=== PATIENT | male | born 1960 | race Caucasian/White ===

== ENCOUNTER → 2023-09-10 12:02 | Outpatient (REF) | payer MEDICARE, OTHER, SELFPAY ==
[2023-09-10 13:48] LABS: % Basophils 0.5 % (0-2); % Eosinophils 1.5 % (0-6); % Immature Granulocytes 0.2 % (0-0.5); % Lymphocytes 19.3 % (20.5-51.1); % Neutrophils 70.5 % (42.2-75.2); Absolute Basophils 0.1 10^3/uL (0-0.2); Absolute Eosinophils 0.1 10^3/uL (0-0.7); Absolute Lymphocytes 1.8 10^3/uL (1.2-3.4); Absolute Monocytes 0.7 10^3/uL (0.1-0.6); Absolute Neutrophils 6.4 10^3/uL (1.4-6.5); Hematocrit 42.2 % (39.0-52.0); Hemoglobin 14.4 g/dL (13.0-18.0); Mean Corp Hgb Conc. 34.1 g/dL (33.0-37.0); Mean Corpuscular Hgb 31.4 pg (27.0-31.0); Mean Corpuscular Volume 91.9 fL (80.0-94.0); Mean Platelet Volume 10.1 fL (7.4-10.4); Nucleated Red Blood Cells % 0 % (-); Platelet Count 270 10^3/uL (130-400); Red Blood Cell Count 4.59 10^6/uL (4.70-6.10); Red Cell Dist. Width 13.7 % (11.5-14.5); White Blood Cell Count 9.1 10^3/uL (4.8-10.8)
[2023-09-10 14:29] LABS: ALT (SGPT) 14 U/L (0-50); AST (SGOT) 21 U/L (17-59); Albumin 4.2 g/dl (3.5-5.0); Alkaline Phosphatase 57 U/L (38-126); Blood Urea Nitrogen 21 mg/dl (9-20); Calcium 9.7 mg/dl (8.4-10.2); Carbon Dioxide 28 mmol/L (22-30); Chloride 101 mmol/L (98-107); Glucose 121 mg/dl (70-99); HDL Cholesterol 37 mg/dl; LDL Cholesterol, Calculated 102 mg/dl; Sodium 136 mmol/L (135-145); Total Bilirubin 0.6 mg/dl (0.2-1.3); Total Cholesterol 160 mg/dl (50-199); Total Protein 6.8 g/dl (6.3-8.2); Triglyceride 108 mg/dl (10-149); Very Low Density Lipoprotein 21 mg/dl (0-30); eGFR > 60.00
[2023-09-10 16:13] LABS: PSA, Total - Screen 0.43 ng/ml (0.0-4.0)
== END ==
LOC: REG 12:02
PROVIDERS: ATTENDING PHYSICIAN Family Medicine
DX: E11.22 Type 2 diabetes mellitus with diabetic chronic kidney disease (principal); Z13.0 Encounter for screening for diseases of the blood and blood-forming organs and certain disorders involving the immune mechanism; E78.00 Pure hypercholesterolemia, unspecified; Z12.5 Encounter for screening for malignant neoplasm of prostate
CPT/HCPCS: 36415; 80053; 80061; 83036; 85025; G0103

== ENCOUNTER → 2024-08-29 10:41 | Outpatient (REF) | payer MEDICARE, OTHER, SELFPAY ==
[2024-08-29 12:02] LABS: Hematocrit 43.6 % (39.0-52.0); Hemoglobin 14.7 g/dL (13.0-18.0); Mean Corp Hgb Conc. 33.7 g/dL (33.0-37.0); Mean Corpuscular Volume 90.3 fL (80.0-94.0); Nucleated Red Blood Cells % 0 % (-); Platelet Count 288 10^3/uL (130-400); Red Cell Dist. Width 13.7 % (11.5-14.5)
[2024-08-29 12:42] LABS: ALT (SGPT) 15 U/L (0-50); AST (SGOT) 18 U/L (17-59); Albumin 4.6 g/dl (3.5-5.0); Alkaline Phosphatase 52 U/L (38-126); Blood Urea Nitrogen 15 mg/dl (9-20); Calcium 9.6 mg/dl (8.4-10.2); Carbon Dioxide 27 mmol/L (22-30); Chloride 102 mmol/L (98-107); Glucose 135 mg/dl (70-99); HDL Cholesterol 34 mg/dl; LDL Cholesterol, Calculated 113 mg/dl; Potassium 4.4 mmol/L (3.5-5.1); Sodium 137 mmol/L (135-145); Total Protein 7.3 g/dl (6.3-8.2); Very Low Density Lipoprotein 51 mg/dl (0-30); eGFR > 60.00
[2024-08-29 12:58] LABS: PSA, Total - Screen 0.50 ng/ml (0.0-4.0)
[2024-08-29 13:20] LABS: Glycohemoglobin (HgbA1c) 6.1 % (4.0-5.6)
== END ==
LOC: REG 10:41
PROVIDERS: ATTENDING PHYSICIAN Family Medicine
DX: E78.00 Pure hypercholesterolemia, unspecified (principal); I10 Essential (primary) hypertension; R73.01 Impaired fasting glucose; Z12.5 Encounter for screening for malignant neoplasm of prostate
CPT/HCPCS: 36415; 80053; 80061; 83036; 85025; G0103

== ENCOUNTER 2024-11-16 20:02 | Inpatient (IN) | payer MEDICARE, OTHER, SELFPAY ==
[2024-11-16] VITALS (9 sets, daily range): BP systolic 40–189; BP diastolic 74–103
[2024-11-16 15:50] LABS: Hematocrit 42.9 % (39.0-52.0); Hemoglobin 14.9 g/dL (13.0-18.0); Mean Corp Hgb Conc. 34.7 g/dL (33.0-37.0); Mean Corpuscular Volume 88.1 fL (80.0-94.0); Nucleated Red Blood Cells % 0 % (-); Platelet Count 286 10^3/uL (130-400); Red Cell Dist. Width 13.8 % (11.5-14.5)
[2024-11-16 16:18] LABS: ALT (SGPT) 18 U/L (0-50); AST (SGOT) 19 U/L (17-59); Albumin 4.1 g/dl (3.5-5.0); Alkaline Phosphatase 45 U/L (38-126); Blood Urea Nitrogen 15 mg/dl (9-20); Calcium 8.7 mg/dl (8.4-10.2); Carbon Dioxide 24 mmol/L (22-30); Chloride 106 mmol/L (98-107); Glucose 155 mg/dl (70-99); Potassium 3.4 mmol/L (3.5-5.1); Sodium 137 mmol/L (135-145); Total Protein 6.6 g/dl (6.3-8.2); eGFR > 60.00
[2024-11-16 16:28] LABS: Lipase 75 U/L (23-300)
[2024-11-16] MEDS: DILAUDID 0.5 MG IV (16:43)
[2024-11-16] MEDS: NSS 1000 IV (16:43)
[2024-11-16 17:19] LABS: Urine Character Clear (Clear)
[2024-11-16 17:31] LABS: Urine Squamous Cell 0-2 /LPF (Few)
--- NOTE | 2024-11-16 18:07 | ED.GENMED ---
History of Present Illness
<Melissa Aaron PA-C - Last Filed: 11/16/24 20:48>
General
Chief Complaint: Abdominal Pain
Source: patient and spouse
Exam Limitations: none
Time Seen by Provider: 11/16/24 16:00
Nursing documentation reviewed up to this point in time: agreed with
History of Present Illness
History of Present Illness:
Patient is a 64-year-old male with history of hypertension, hyperlipidemia who presents to the emergency department with severe abdominal pain. Patient states symptoms started this morning around 9:30 AM while he was sitting on the couch drinking
coffee. He had not had anything to eat yet this morning. He describes pain as 'feeling like his intestines are twisting'. He also says that he feels a lot of pressure. It has been a constant pain across his entire lower abdomen. No radiation of
pain into his back. He has not had any episodes of nausea or vomiting. He has had no known fever. He denies any dysuria or hematuria. He had a normal bowel movement this morning prior to onset of symptoms.
Patient denies any associated chest pain or shortness of breath.
No known sick contacts.
Review of Systems
<Melissa Aaron PA-C - Last Filed: 11/16/24 20:48>
Review of Systems
Allergies reviewed?: Yes
All Other Systems: ROS reviewed and negative except as documented in HPI and ROS
Phy Exam
<Melissa Aaron PA-C - Last Filed: 11/16/24 20:48>
Physical Exam
Physical Exam:
Vitals: Hypertensive, otherwise vital signs stable. Afebrile
General: Patient is in moderate distress secondary to pain.
Skin: Warm and dry, no rashes or lesions
Head: Normocephalic, atraumatic
Eyes: Sclera nonicteric. EOMs intact. No nystagmus.
Throat: Protecting airway
Neck: Normal ROM, no cervical spine tenderness, no meningismus
Cardiac: Regular rate and rhythm, no murmurs.
Pulm: Normal respiratory effort, no wheezes, rales, rhonchi heard on exam
Abdomen: Abdomen soft. Moderate tenderness across lower abdomen guarding. No rebound tenderness.
Extremities: No evidence of cyanosis or edema. 2+ palpable DP pulses bilaterally
Neuro: AAOx3. Grossly intact.
Psychiatric: Normal affect.
Course
<Melissa Aaron PA-C - Last Filed: 11/16/24 20:48>
Orders/Labs/Results
Orders:
Orders
11/16/24 15:42
EKG [Electrocardiogram (*1)] Urgent
Reason for Study: Abdominal Pain
11/16/24 15:43
EKG- Treatment ONCE
11/16/24 15:44
Complete Blood Count/With Diff Urgent
Comprehensive Metabolic Panel Urgent
Lipase Urgent
Comment: LIPASE ADDED ON BY FLOOR 4:15PM 11-16-24
11/16/24 16:14
Add On- LAB Urgent
Tests Added?: lipase
CT Abd/pelvis W Iv Cont Urgent
Comment:
Reason For Exam: lower abdominal pain
0.9% Sodium Chloride 1000 ml [Nss] 1,000 ml IV BOLUS
HYDROmorphone [Dilaudid] 0.5 mg IV NOW STA
11/16/24 17:02
Lactic Acid Q4H
Comment: CANCEL 2nd LACTIC ACID IF 1st LACTIC ACID IS LESS THAN 2
Urinalysis Reflex To Culture Urgent
Date Specimen was Collected: 11/16/24
Time Specimen was Collected: 17:00
Urine Microscopic Reflex Cult Urgent
Urine Culture Urgent
RAS Source: U
Specimen Description:
Date Specimen was Collected: 11/16/24
Time Specimen was Collected: 17:00
11/16/24 18:06
HYDROmorphone [Dilaudid] 1 mg IV NOW STA
11/16/24 18:07
Ondansetron Injectable [Zofran] 4 mg IV NOW STA
11/16/24 18:51
Ampicillin/Sulbactam 3 G [Unasyn] 3 gm 0.9% Sodium Chloride 100 ml [Nss] 100 ml IV NOW
11/16/24 19:01
0.9% Sodium Chloride 1000 ml [Nss] 1,000 ml IV BOLUS
Acetaminophen 1000MG/100Ml [Ofirmev] 1,000 mg in 100 ml IV ONCE
Acetaminophen IV Indication:: ED Narcotic History-ONCE
11/16/24 19:13
Lactated Ringers [Lr] 1,000 ml IV BOLUS
11/16/24 19:24
HYDROmorphone [Dilaudid] 1 mg IV NOW STA
11/16/24 19:34
Blood Culture Q30M
RAS Source: Blood/Venous
Specimen Description:
Blood Culture Q30M
RAS Source: Blood/Venous
Specimen Description:
11/16/24 19:37
Admit/Transfer Patient As Directed
Co-Sign Provider:
Level of Care: Inpatient admission
Assign to:: IMU- Intermediate Care
Physician / Group: mayra sullivan
Diagnosis: sepsis 2/2 to diverticulitis with sigmoid perforation
Reason for Hospitalization: sepsis 2/2 to diverticulitis with sigmoid perforation
Expected length of stay greater than two midnights?: Yes
ELOS- Estimated Length of Stay in days: 4
I certify the patient meets the requirements for IP care: Yes
11/16/24 19:39
Ampicillin/Sulbactam 3 G [Unasyn] 3 gm 0.9% Sodium Chloride 100 ml [Nss] 100 ml IV NOW
11/16/24 19:42
Code Status As Directed
Resuscitation Status: Full Code
11/16/24 19:46
PRN Pain Medication Management As Directed
May give lesser potent ordered pain med per pt: Yes
preference::
Protocol:: Medication orders for pain may be administered in a
manner that supports deferring to patient preference
when the pt is:
- Requesting an ordered lesser potent pain medication.
Least to most potent pain medications are defined
as: acetaminophen < NSAID < tramadol < opioids
(morphine, oxycodone, hydromorphone).
- Requesting a lesser dose of the same medication IF
ORDERED.
- Requesting a less intrusive route of administration
if both routes are prescribed by the provider (PO <
IV).
11/16/24 20:14
Lactic Acid Q4H
Comment: CANCEL 2nd LACTIC ACID IF 1st LACTIC ACID IS LESS THAN 2
Abnormal Lab Results
11/16/24 11/16/24
15:44 17:02
WBC 21.1 H 10^3/uL
(4.8-10.8)
Abs Immat Gran (auto) 0.1 H 10^3/uL
(0-0.05)
Absolute Neuts (auto) 19.3 H 10^3/uL
(1.4-6.5)
Absolute Lymphs (auto) 0.9 L 10^3/uL
(1.2-3.4)
Neutrophils % 91.7 H %
(42.2-75.2)
Lymphocytes % 4.5 L %
(20.5-51.1)
Potassium 3.4 L mmol/L
(3.5-5.1)
Glucose 155 H mg/dl
(70-99)
Lactic Acid 2.5 H mmol/L
(0.7-2.0)
Urine Ketones 1+ A
(Negative)
Ur Occult Blood Reflex 4+ A
(Negative)
Leukocyte Esterase Rfl 1+ A
(Negative)
Urine RBC 11-15 A /HPF
(0-2)
Urine Bacteria (Reflex) Moderate A
(Negative)
Urine Albumin (Reflex) 3+ A
(Neg - Trace)
11/16/24 15:44
11/16/24 15:44
Vital Signs
Initial and Last Documented VS:
Initial Vital Signs
Temp Pulse Resp BP Pulse Ox
99.1 F 65 20 185/93 100
11/16/24 15:31 11/16/24 15:31 11/16/24 15:31 11/16/24 15:31 11/16/24 15:31
Last Documented Vital Signs
Temp Pulse Resp BP Pulse Ox
101 F H 97 26 183/103 97
11/16/24 18:30 11/16/24 18:45 11/16/24 18:45 11/16/24 18:00 11/16/24 18:30
<Chase Troncoso MD - Last Filed: 11/16/24 18:58>
Orders/Labs/Results
Orders:
Orders
11/16/24 15:42
EKG [Electrocardiogram (*1)] Urgent
Reason for Study: Abdominal Pain
11/16/24 15:43
EKG- Treatment ONCE
11/16/24 15:44
Complete Blood Count/With Diff Urgent
Comprehensive Metabolic Panel Urgent
Lipase Urgent
Comment: LIPASE ADDED ON BY FLOOR 4:15PM 11-16-24
11/16/24 16:14
Add On- LAB Urgent
Tests Added?: lipase
CT Abd/pelvis W Iv Cont Urgent
Comment:
Reason For Exam: lower abdominal pain
0.9% Sodium Chloride 1000 ml [Nss] 1,000 ml IV BOLUS
HYDROmorphone [Dilaudid] 0.5 mg IV NOW STA
11/16/24 17:02
Lactic Acid Q4H
Comment: CANCEL 2nd LACTIC ACID IF 1st LACTIC ACID IS LESS THAN 2
Urinalysis Reflex To Culture Urgent
Date Specimen was Collected: 11/16/24
Time Specimen was Collected: 17:00
Urine Microscopic Reflex Cult Urgent
Urine Culture Urgent
RAS Source: U
Specimen Description:
Date Specimen was Collected: 11/16/24
Time Specimen was Collected: 17:00
11/16/24 18:06
HYDROmorphone [Dilaudid] 1 mg IV NOW STA
11/16/24 18:07
Ondansetron Injectable [Zofran] 4 mg IV NOW STA
11/16/24 18:51
Ampicillin/Sulbactam 3 G [Unasyn] 3 gm 0.9% Sodium Chloride 100 ml [Nss] 100 ml IV NOW
11/16/24 19:01
0.9% Sodium Chloride 1000 ml [Nss] 1,000 ml IV BOLUS
Acetaminophen 1000MG/100Ml [Ofirmev] 1,000 mg in 100 ml IV ONCE
Acetaminophen IV Indication:: ED Narcotic History-ONCE
11/16/24 19:13
Lactated Ringers [Lr] 1,000 ml IV BOLUS
11/16/24 19:24
HYDROmorphone [Dilaudid] 1 mg IV NOW STA
11/16/24 19:34
Blood Culture Q30M
RAS Source: Blood/Venous
Specimen Description:
Blood Culture Q30M
RAS Source: Blood/Venous
Specimen Description:
11/16/24 19:37
Admit/Transfer Patient As Directed
Co-Sign Provider:
Level of Care: Inpatient admission
Assign to:: IMU- Intermediate Care
Physician / Group: mayra sullivan
Diagnosis: sepsis 2/2 to diverticulitis with sigmoid perforation
Reason for Hospitalization: sepsis 2/2 to diverticulitis with sigmoid perforation
Expected length of stay greater than two midnights?: Yes
ELOS- Estimated Length of Stay in days: 4
I certify the patient meets the requirements for IP care: Yes
11/16/24 19:39
Ampicillin/Sulbactam 3 G [Unasyn] 3 gm 0.9% Sodium Chloride 100 ml [Nss] 100 ml IV NOW
11/16/24 19:42
Code Status As Directed
Resuscitation Status: Full Code
11/16/24 19:46
PRN Pain Medication Management As Directed
May give lesser potent ordered pain med per pt: Yes
preference::
Protocol:: Medication orders for pain may be administered in a
manner that supports deferring to patient preference
when the pt is:
- Requesting an ordered lesser potent pain medication.
Least to most potent pain medications are defined
as: acetaminophen < NSAID < tramadol < opioids
(morphine, oxycodone, hydromorphone).
- Requesting a lesser dose of the same medication IF
ORDERED.
- Requesting a less intrusive route of administration
if both routes are prescribed by the provider (PO <
IV).
11/16/24 20:14
Lactic Acid Q4H
Comment: CANCEL 2nd LACTIC ACID IF 1st LACTIC ACID IS LESS THAN 2
Abnormal Lab Results
11/16/24 11/16/24
15:44 17:02
WBC 21.1 H 10^3/uL
(4.8-10.8)
Abs Immat Gran (auto) 0.1 H 10^3/uL
(0-0.05)
Absolute Neuts (auto) 19.3 H 10^3/uL
(1.4-6.5)
Absolute Lymphs (auto) 0.9 L 10^3/uL
(1.2-3.4)
Neutrophils % 91.7 H %
(42.2-75.2)
Lymphocytes % 4.5 L %
(20.5-51.1)
Potassium 3.4 L mmol/L
(3.5-5.1)
Glucose 155 H mg/dl
(70-99)
Lactic Acid 2.5 H mmol/L
(0.7-2.0)
Urine Ketones 1+ A
(Negative)
Ur Occult Blood Reflex 4+ A
(Negative)
Leukocyte Esterase Rfl 1+ A
(Negative)
Urine RBC 11-15 A /HPF
(0-2)
Urine Bacteria (Reflex) Moderate A
(Negative)
Urine Albumin (Reflex) 3+ A
(Neg - Trace)
11/16/24 15:44
11/16/24 15:44
Vital Signs
Initial and Last Documented VS:
Initial Vital Signs
Temp Pulse Resp BP Pulse Ox
99.1 F 65 20 185/93 100
11/16/24 15:31 11/16/24 15:31 11/16/24 15:31 11/16/24 15:31 11/16/24 15:31
Last Documented Vital Signs
Temp Pulse Resp BP Pulse Ox
101 F H 97 26 183/103 97
11/16/24 18:30 11/16/24 18:45 11/16/24 18:45 11/16/24 18:00 11/16/24 18:30
<Melissa Aaron PA-C - Last Filed: 11/16/24 20:48>
MDM/Problems Addressed
Differential Diagnosis Includes:
Not limited to: Diverticulitis, diverticular abscess, bowel perforation, renal colic, appendicitis, bowel obstruction, mesenteric ischemia, strangulated hernia, etc.
MDM/Problems Addressed:
64-year-old male presenting with acute onset lower abdominal pain at 930 this morning. No associated fever, vomiting, dysuria. He was in his normal state of health yesterday. On arrival, patient is afebrile. He appears uncomfortable. His
abdomen is soft with somewhat diffuse tenderness across lower abdomen, difficult to localize with guarding. Cardio/pulmonary assessment unremarkable.
Labs sent prior to my evaluation reveal significant leukocytosis of 21.1 with left shift. Chemistry with very mild hypokalemia and hyperglycemia.
Differential as above. Patient is afebrile on arrival. Considered intra-abdominal infectious process versus reactive leukocytosis. Given significant degree of pain�will check lactic acid. Will check lipase and UA. Will obtain CT scan with IV
contrast to further evaluation. Will give IV fluids and pain medication.
Update: Lactic acid mildly elevated 2.5. Patient is receiving IV fluids. CT pending.
Update 6:02 PM: I was contacted by RN saying the patient was in a significant amount of pain. I did reassess patient at bedside who appears very uncomfortable, moaning. He appears to be in more pain than he initially was upon arrival. He states
initial dose of Dilaudid did help temporarily however now it has increased again. Will get patient to CT scan as soon as possible and give additional dose of pain medication.
Update: CT scan reveals acute diverticulitis with moderate focal perforation of proximal sigmoid colon. Developing abscess unable to be excluded. Attending physician discussed with colorectal surgeon, Dr. Field immediately. Additional liter of IV
fluids and IV Unasyn ordered. Plan will be to take patient to the OR [facility].
Patient was found to have a rectal temperature of 101 on reassessment by RN. He meets sepsis criteria likely secondary to diverticulitis complicated by perforation. He has remained normotensive. He is receiving second bolus of IV fluids. He was
accepted to hospitalist service for admission with plan for transportation to the OR [facility] with colorectal surgery.
Chronic conditions affecting care:
Hypertension
Acute Exacerbation and/or Progression of Chronic Illness:
Acutely hypertensive
<Melissa Aaron PA-C - Last Filed: 11/16/24 20:48>
*Radiology
Radiology exam reviewed: radiology read reviewed
*Pulse Oximetry
SaO2: 100
Oxygen Mode of Delivery: Room air
Patient hypoxic: no
*EKG
Interpreted by ED Provider?: NA
*Senior [employer] Design Engineer Interpretation
Rate: normal
Interpretation: normal
Heart Rate: 64
Rhythm: sinus
*Critical Care Note
Total Time (30-74mins, 75-104mins- exclusive of procedures): Not Applicable
<Melissa Aaron PA-C - Last Filed: 11/16/24 20:48>
Patient Management
Discussion with other providers: Hospitalist and Advanced Manufacturing Technician (Case discussed with colorectal surgery)
ED Attending Note
<Melissa Aaron PA-C - Last Filed: 11/16/24 20:48>
-
Portions of this chart may have been created with voice recognition software.� Occasional wrong word or��sound alike� substitutions may have occurred due to the inherent limitations of voice recognition software.
<Chase Troncoso MD - Last Filed: 11/16/24 18:58>
ED Attending Note
Patient seen and examined by attending physician: Yes
I performed the substantive portion of visit, reviewed & personally made and approve the management plan that is documented in note by myself or MARGIE.: Yes
ED Attending Note:
64-year-old male sudden onset of abdominal pain this morning. I heard him going over to see CAT scan and appeared very uncomfortable. Patient moaning in pain. Quite uncomfortable. No respiratory distress. Warm and dry. Perfusing well. Abdomen
is distended although he had does have a bulbous abdomen. Diffuse tenderness difficult to localize.
Labs show significant leukocytosis. Awaiting CT report I did call over to CAT scan/radiology to try to have them expedite reading
1750... CT scan shows diverticulitis with moderate perforation. Colorectal surgery contacted immediately. Patient and updated. Antibiotics ordered. Blood cultures ordered.
Discharge Plan
Departure
Patient Disposition: Admit
Date of Disposition: 11/16/24
Time of Disposition: 18:57
Presentation/result/management discussed w/ accepting MD/DO: Hospitalist
Discharge Problem:
Diverticulitis of colon with perforation
Interventions
Interventions:
*Risk Screen - Suicide Last Done: 11/16/24 15:37
*General Assessment Last Done: 11/16/24 15:37
*Neglect/Abuse Screening Last Done: 11/16/24 15:37
*ED- Fall Risk Assessment Last Done: 11/16/24 15:40
*ED COVID-19 Vaccine History Last Done: 11/16/24 15:40
*ED Influenza Vaccine History Last Done: 11/16/24 15:40
VK-Rquiob-Gazgemex[facility] Assessment Last Done: 11/16/24 15:40
[2024-11-16] MEDS: ZOFRAN 4 MG IV (19:00)
[2024-11-16] MEDS: DILAUDID 1 MG IV ×2 (19:00→19:43)
--- NOTE | 2024-11-16 19:18 | W.PN.UPDATE ---
Update Note
Progress Note Update
This note serves as an addendum to the H&P by cafeteria clerk Vanda Gay
HPI�
64M current smoker, HX diverticulitis, DLP, chronic narcotic decedent LBP seen at ER:
- acute severe abdominal pain started this morning around 9:30 AM while he was sitting on the couch drinking coffee.
- did not eat anything since this morning.
- describes pain as 'feeling like his intestines are twisting'.
- No radiation of pain into his back. He has not had any episodes of nausea or vomiting.
ROS:
- denies any dysuria or hematuria.
-normal bowel movement this morning prior to onset of symptoms.
- denied chest pain or shortness of breath.
Relevant VS
11/16/24
18:30 11/16/24
18:30 11/16/24
18:45
Temp 101 F H
Temp route: Rectal
Pulse 98 97
Resp Rate 21 26
11/16/24
18:00 11/16/24
18:00 11/16/24
18:00
Blood pressure 183/103 183/103 183/103
PE
Gen: in distress due to abdominal pain but not toxic
HEENT: anicteric
Neck: supple
Lungs: CTA
Cor: RRR S1 S2
Abdomen:� diffusely tender abdomen and guarding
CREDIT REVIEW OFFICER: AAO3
MS: no edema
Psych: appropriate
Relevant Data�
10/18/09 11/16/24 11/16/24
10:07 15:44 17:02
WBC 21.1 H
Hgb 14.9
Plt Count 286
INR 0.88
Potassium 3.4 L
Carbon Dioxide 24
eGFR > 60.00
Glucose 155 H
Lactic Acid 2.[address] AP W Iv Cont
- moderate acute diverticulitis with a moderate focal perforation in the proximal sigmoid colon.
Additional free air as described above. Developing abscess cannot be excluded.
Associated mild free fluid.
- Too small to catheterize hypodense left renal lesion likely benign cysts.
- Mild hepatomegaly.
- Hepatic fatty infiltration
NO PRIOR hospitalist admission:
ASSESSMENT & PLAN
Severe sepsis ( T> 100.9, HR > 90, RR 20 , WCC 21, LA > 2) due to complicated diverticulitis
Complicated acute proximad diverticulitis with moderate focal perforation and peritonism
HX Diverticulitis
- Urgent CRS consult and will proceed to OR
- LR IVF septic fluid - 1 L WO at ER, s/p 1 L NS
- Empiric IV Unasyn 3gm q6h
- PRN IV Dilaudid per severity
- IV PPI daily
- NPO
Hypertensive due to acute pain and distress
Essential HTN
- Nl Cr and eGFR
- adequate preop and post op pain control
- Hold Valsartan + HCTZ
Chr LBP on chr narcotics
DVT Px: SCD
Full code
IMU
--- NOTE | 2024-11-16 19:24 | HPS.HSE ---
Family Physician
-
Family Physician: Rosibel Romero MD
Chief Complaint
-
Abdominal pain, fever
History of Present Illness
64-year-old male complaining of generalized abdominal pain that started this a.m. 930 while sitting on the sofa drinking coffee. He reports constant pain in his lower abdomen while going to CAT scan in the ER he developed worsening pain along with
fever of 101F. He is noted to have WBC count of 21.[address] abdomen pelvis showing moderate acute diverticulitis with moderate focal perforation in the proximal sigmoid colon with additional multiple small pockets of extraluminal air. Patient
denies headache, chest pain, palpitations, cough, shortness of breath, diarrhea, urinary symptoms. He has past medical history of COPD, hypertension, hyperlipidemia, GERD, diverticulitis, hemorrhoids, chronic back pain on chronic oral opiates,
C6-C7 fusion
Medical History
Past Medical History
Past Medical History: Reports Other
Additional Past Medical History:
COPD
Active smoker 1 pack a day 50 years
hypertension
hyperlipidemia
chronic back pain on chronic oral opiates,
GERD
diverticulitis
hemorrhoids
Past Surgical History: Reports Other
Additional Past Surgical History:
C6-C7 fusion
Social History
Tobacco: Smoker (1 pack a day 50 years)
Alcohol: None
Drug: None
Personal:
Living: With Family ()
Employment: Retired
Family History
Family History: Not pertinent
Allergies / Home Medications
Allergies reflects when Allergies were last updated in [employer].
Home Medications with original date entered in [employer]
Allergy/Medication List:
Allergies
Allergy/AdvReac Type Severity Reaction Status Date / Time
No Known Allergies Allergy Verified 11/16/24 15:30
Home Medications
pantoprazole 40 mg tablet,delayed release 40 mg PO DAILY 04/05/10
fexofenadine 180 mg tablet 180 mg PO DAILY 11/16/24
oxycodone 15 mg tablet 15 mg PO Q6HPRN PRN severe pains 11/16/24
valsartan 160 mg-hydrochlorothiazide 12.5 mg tablet 1 tab PO DAILY 11/16/24
Review of Systems
-
History Source: Patient and Family ( at bedside)
Constitutional: Reports Fever and Chills
EENT: Denies Sore Throat or Runny Nose
Respiratory: Denies Cough or Trouble Breathing
Cardiac: Denies Chest Pain, Diaphoresis, Palpitations or Syncope
Abdomen/GI: Reports Abdominal Pain and Nausea; Denies Vomiting, Diarrhea, Constipated or Bloody Stools
: Denies Dysuria, Frequency, Flank Pain, Incontinence or Difficulty Voiding
Musculoskeletal: Denies Joint Pain or Edema
Skin: Denies Itching or Rash
Neurological: Denies Dizzy, Headache or Weakness
Endocrine: Reports No Symptoms
Hematologic/Lymphatic: Reports No Symptoms
Psych: Reports Calm
Physical Exam
Vital Signs
Vital Signs
Temp Pulse Resp BP Pulse Ox
101 F H 97 26 183/103 97
11/16/24 18:30 11/16/24 18:45 11/16/24 18:45 11/16/24 18:00 11/16/24 18:30
Physical Exam
General: Conversant, Pain, Fever and Chills
HEENT: NormoCephalic, Anicteric, Moist mucous membranes, PERRLA, [place] Conjunctivae and No Ptosis
Respiratory: Clear; No Wheezes, Rales or Rhonchi
Cardiac: S1/S2 and Regular Rhythm; No Murmur, Rub, Gallop or Peripheral Edema
GI: Soft, Normal Bowel Sounds and Tender (llq abd pain)
Genito-urinary: Deferred by me
Musculoskeletal: No Clubbing, No Cyanosis and No Edema
Skin: Warm and Dry; No Rash
Neuro: AO x 3, No Motor Deficits, Nonfocal/grossly intact, Cranial Nerves Intact and No Sensory Deficits; No Slurred Speech, Facial Droop or Tremors
Psych: Anxious
Laboratory Results
-
11/16/24 15:44
11/16/24 15:44
Laboratory Results
Lactic Acid 2.5 mmol/L (0.7-2.0) H 11/16/24 17:02
Total Bilirubin 0.6 mg/dl (0.2-1.3) 11/16/24 15:44
AST 19 U/L (17-59) 11/16/24 15:44
ALT 18 U/L (0-50) 11/16/24 15:44
Alkaline Phosphatase 45 U/L (38-126) 11/16/24 15:44
Lipase 75 U/L (23-300) 11/16/24 15:44
Data Reviewed
-
CT Scan: Report Reviewed by me
Lab Data: Labs Reviewed by me
Impression/Plan
-
Impression/plan:
Admit to IMU
#Sepsis secondary to acute diverticulitis with perforation proximal sigmoid colon
WBC 21.1 with left shift, HR 97, temp 101F, 183/103
-IV LR
- Consult general surgery Dr. Field aware
- Patient for OR tonight
- IV Dilaudid for pain mild moderate-severe as patient is on chronic oxycodone 15 mg every 4 to 6 as needed
-Patient received 1 L IV NSS 1 L IV LR continue IV LR 100 cc an hour
- IV Zofran, IV Phenergan
- IV Protonix
- IV Unasyn 3 g
- follow cbc cmp
CT chest abdomen
1. Findings suggesting moderate acute diverticulitis with a moderate focal perforation in the proximal sigmoid colon. Additional free air as described above. Developing abscess cannot be excluded.
Associated mild free fluid.
2. Too small to catheterize hypodense left renal lesion likely benign cysts.
3. Mild hepatomegaly.
4. Hepatic fatty infiltration
#COPD�no acute exacerbation
Active smoker 1 pack a day 50 years
-Monitor pulse oximetry albuterol as needed
- Nicotine patch 21 mg
#Hypertension
183/103 secondary to current pain
Monitor blood pressure
-Hold valsartan/HCTZ
-IV labetalol 5 mg every 6 hours as needed SBP>160
#Hyperlipidemia
Patient reports used to be on statins repeat cholesterol was negative so he stopped
#Chronic back pain on chronic oral opiates
- Patient on chronic oxycodone 15 mg IR every 4 to 6 hours as needed
-Will hold until patient able to resume oral intake per surgery
# GERD
-Will convert p.o. Protonix to IV
Other PMH:
diverticulitis
hemorrhoids
DVT prophylaxis
Subcu heparin
Full code
[2024-11-16] MEDS: OFIRMEV 100 IV (19:28)
[2024-11-16] MEDS: LR 1000 IV (19:30)
--- NOTE | 2024-11-16 20:16 | EDRN ---
IV antibiotics not given, called down to pharmacy but did not receive in time to send pt to OR
--- NOTE | 2024-11-16 20:19 | CON.CRS ---
Consultation
-
Date/Time Consultation Requested: 11/16/24 @18:53
Date/Time Consultation Performed: 11/16/24 @20:00
Requesting Provider: Chase Troncoso MD
Performing Provider: Aram Field MD
Reason for Consultation: Perforated sigmoid diverticultis
Medical History
-
Chief Complaint: Abdominal pain
History of Present Illness:
64-year-old male with hypertension COPD, hyperlipidemia, and chronic narcotic use who presents to the emergency room with severe abdominal pain.� The pain began acutely this morning and progressed throughout the day.� The pain was localized
initially to left lower quadrant and now it is more diffuse.� He feels like his intestines are �twisting�.� He moved his bowels this morning and it was normal.� He has no prior history of diverticulitis and he has not undergone any previous
abdominal surgery..� He had a colonoscopy about 5 years ago that he reports was normal.
While in the emergency room his temperature was 101. He is not tachycardic his blood pressure is elevated. He appears quite uncomfortable lying on his left side with his legs drawn up. He is moaning and his abdomen is diffusely tender with
guarding and rebound left greater than right.
His white count is 21.1. A CT scan of the abdomen and pelvis with intravenous contrast reveals pericolonic stranding around the sigmoid colon with multiple small pockets of extraluminal air anterior to the rectum and some scattered pockets of
extraluminal air in the upper abdomen. There is some mild free fluid mostly on the right.
Past Medical History
Past Medical History: COPD, GERD, HTN, Hypercholesterolemia and Other (Chronic back pain)
Past Surgical History: Orthopedic (C6-7 fusion)
Social History
Tobacco: Smoker (1 pack/day for 50 years)
Alcohol: None
Drug: None
Personal:
Living: With Family
Employment: Retired
Family History
Family History: Reviewed & Not Pertinent
Allergies / Home Medications
Allergy/AdvReac Type Severity Reaction Status Date / Time
No Known Allergies Allergy Verified 11/16/24 15:30
�Medication �Instructions �Recorded �Confirmed �Type
pantoprazole 40 mg tablet,delayed 40 mg PO DAILY 04/05/10 11/16/24 History
release
fexofenadine 180 mg tablet 180 mg PO DAILY 11/16/24 11/16/24 History
oxycodone 15 mg tablet 15 mg PO Q6HPRN PRN severe pains 11/16/24 11/16/24 History
valsartan 160 1 tab PO DAILY 11/16/24 11/16/24 History
mg-hydrochlorothiazide 12.5 mg
tablet
Review of Systems
-
History Source: Patient
All other systems: Negative unless noted
A 10 point review of systems was completed, and was negative except as per HPI.
Physical Exam
Vital Signs
Temp 101 F H 11/16/24 18:30
Pulse 97 11/16/24 18:45
Resp Rate 26 11/16/24 18:45
Blood pressure 183/103 11/16/24 18:00
SaO2 97 11/16/24 18:30
Lab Results / Allergies
11/16/24 15:44
11/16/24 15:44
WBC 21.1 10^3/uL (4.8-10.8) H 11/16/24 15:44
Hgb 14.9 g/dL (13.0-18.0) 11/16/24 15:44
Hct 42.9 % (39.0-52.0) 11/16/24 15:44
Plt Count 286 10^3/uL (130-400) 11/16/24 15:44
Abs Immat Gran (auto) 0.1 10^3/uL (0-0.05) H 11/16/24 15:44
Neutrophils % 91.7 % (42.2-75.2) H 11/16/24 15:44
Allergy/AdvReac Type Severity Reaction Status Date / Time
No Known Allergies Allergy Verified 11/16/24 15:30
Physical Exam
General: Well Developed, Well Nourished, Pain and Sweats
HEENT: Anicteric
Respiratory: Clear
Cardiac: Regular Rhythm
GI: Tender (With peritoneal signs (guarding and rebound) left greater than right) and Distended
Musculoskeletal: No Edema
Skin: Warm
Neuro: Awake and Alert
Data Reviewed
-
CT Scan: Image Personally Visualized and interpreted, Report Reviewed by me, Discussed with Patient and Discussed with Family
Labs: Labs Reviewed by me, Discussed with Patient and Discussed with Family
Assessment / Plan
-
Perforated sigmoid diverticulitis.
I reviewed the current findings with the patient and his and discussed the treatment options. We discussed nonoperative management with antibiotics and bowel rest versus surgery. Without surgery there is a risk of worsening sepsis, abscess
formation, and . Surgery will involve an exploratory laparotomy, sigmoid resection and probable end colostomy. There is a small chance an anastomosis can be performed with or without proximal diversion. Risks of surgery include, but are not
limited to, bleeding, infection, adhesions, hernias, injury to other structures, stoma complications, anastomotic leak if one is performed, DVT, cardiopulmonary complications (especially in light of his smoking history), and the risks of anesthesia.
If a colostomy is made, it is temporary and the timing of closure is dictated by his postoperative course and intra-abdominal findings. I also reviewed the typical recovery both in and out of the hospital. All questions answered and since he is
in excruciating pain, he wishes to proceed with surgery as soon as possible. Antibiotics have been ordered and arrangements are in progress for the operating room.
--- NOTE | 2024-11-16 23:23 | W.IMMPOSTOP ---
Surgical Immed Post Op Note
-
Primary Surgeon: Aram iFeld MD
Pre-op Diagnosis: Perforated sigmoid diverticulitis
Post-op Diagnosis: Same
Procedure Performed: Exploratory laparotomy, sigmoid resection and end colostomy (Tasha procedure)
Anesthesia Type: GET, [place]
Specimen / Cultures: Peritoneal cultures
Sigmoid colon (suture is distal)
Estimated Blood Loss: 25cc
Complications: None
Operative Findings: Large amount of solid stool in the pelvis from perforated diverticulitis
Feculent fluid in the upper quadrants
NGT in the fundus of the stomach
#19 Sahil drain in the pelvis
Patient's updated via telephone.
[2024-11-17] VITALS (31 sets, daily range): BP systolic 15–168; BP diastolic 76–118; PULSE 94–112; O2SAT 92; BMI 28.2; BMI 28.0
[2024-11-17] MEDS: LR 1000 IV ×3 (00:40→18:42)
[2024-11-17] MEDS: TORADOL 15 MG IV ×5 (00:43→23:18)
[2024-11-17] MEDS: HEPARIN 5000 UNITS SC ×2 (00:46→09:18)
--- NOTE | 2024-11-17 03:00 | PTCARENOTE ---
Received pt from OR,pt drowsy but oriented tolerated transfer well.Pt VS stable,ABD assessment preformed Drsg dry intact ,colostomy stoma moist,intact with appliance present.PEG compressed minimal drainage.NGT intact to right nare.SR cardiac
monitor,VS stable.Pt comfortable denied need for pain med.IVF LR initiated at 100mls hour,close observation ongoing.
[2024-11-17] MEDS: DILAUDID 2 MG IV ×4 (04:20→18:42)
[2024-11-17 05:47] LABS: Hematocrit 41.3 % (39.0-52.0); Hemoglobin 14.2 g/dL (13.0-18.0); Mean Corp Hgb Conc. 34.4 g/dL (33.0-37.0); Mean Corpuscular Volume 88.1 fL (80.0-94.0); Platelet Count 250 10^3/uL (130-400); Red Cell Dist. Width 14.2 % (11.5-14.5)
[2024-11-17 06:04] LABS: ALT (SGPT) 18 U/L (0-50); AST (SGOT) 19 U/L (17-59); Albumin 3.4 g/dl (3.5-5.0); Alkaline Phosphatase 24 U/L (38-126); Blood Urea Nitrogen 22 mg/dl (9-20); Calcium 8.4 mg/dl (8.4-10.2); Carbon Dioxide 23 mmol/L (22-30); Chloride 105 mmol/L (98-107); Estimated Creatinine Clearance 77 ml/min; Glucose 163 mg/dl (70-99); Potassium 4.4 mmol/L (3.5-5.1); Sodium 135 mmol/L (135-145); Total Protein 5.7 g/dl (6.3-8.2); eGFR > 60.00
[2024-11-17 06:43] LABS: Nucleated Red Blood Cells % 0 % (-)
--- NOTE | 2024-11-17 07:58 | W.PN.HOSP.TC ---
Today's Communication/Plan
-
Stable for downgrade to Tele
cont empirix abx zosyn
Repeat Blood Cultures
Nicotine Supplementation
pain control
Assessment / Plan
Assessment / Plan
Physical Exam
General: no acute distress, appears relatively comfortable at this time, sitting up in bed
HEENT: NormoCephalic, Anicteric, Moist mucous membranes, NGT in place
Respiratory: Clear; No Wheezes, Rales or Rhonchi
Cardiac: S1/S2 and Regular Rhythm; No Murmur, Rub, Gallop or Peripheral Edema
GI: Soft, absent bowel sounds, dressings clean dry intact, colostomy present no stool noted
Genito-urinary: Pozo in place
Musculoskeletal: No Clubbing, No Cyanosis and No Edema
Skin: Warm and Dry; No Rash
Neuro: AO x 3 conversant coherent
Psych: Calm
64M Tobacco Diverticulitis Chronic back pain narcotics dependence HTN HLD GERD here for severe sepsis 2/2 diverticulitis perforation s/p Exploratory laparotomy, sigmoid resection and end colostomy (Tasha procedure),
#Severe sepsis diverticulitis perforation s/p Exploratory Lap, sigmoid resection, End Colostomy
IMU admit, hemodynamically stable post-op, wbc trending down, Downgraded to Tele 11/17/24
CRS eval appreciated cont strict NPO, maintain NGT
IVF support while NPO
cont empiric zosyn
Bacteremia E. coli follow sensitivities repeat Blood cultures
pain control
#HTN
holding home Valsartan HCTZ while strict NPO
Labetalol prn
#Chronic Back pain w/ chronic opiate use possible dependence
on prn Oxycodone home, holding d/t strict NPO
prn Dilaudid
#Tobacco use
smoking cessation counseled
Nicotine Supplementation
DVT ppx Lovenox
Full Code
Discussed with patient and patient's Ria
I spent a total of 50 minutes with the patient or on the floor. More than 50% of this time involved counseling and coordination of care.
Anticipated Discharge: > 48 hours
Subjective/Interval History
-
Date of Service: November 17, 2024
No acute distress, reports significant improvement in pain. No flatus. Reports nicotine craving.
Objective Data
-
Labs:
Laboratory Results
11/17/24
05:06
WBC 12.3 H
Hgb 14.2
Hct 41.3
Plt Count 250
Sodium 135
Potassium 4.4 D
Chloride 105
Carbon Dioxide 23
BUN 22 H
Creatinine 1.1
Glucose 163 H
Calcium 8.4
Total Bilirubin 1.2
AST 19
ALT 18
Alkaline Phosphatase 24 L
Vital Signs:
Vital Signs
Temp Pulse Resp BP Pulse Ox
98.9 F 82 19 131/77 92
11/17/24 07:26 11/17/24 07:45 11/17/24 07:45 11/17/24 07:30 11/17/24 07:45
I&O
11/16/24 11/17/24 11/18/24
06:59 06:59 06:59
Intake Total 1700 / 1700
Output Total 550 / 550 115 / 115
Balance 1150 / 1150 -115 / -115
[2024-11-17] MEDS: PROTONIX IV 40 MG IV (09:18)
[2024-11-17] MEDS: NICODERM TRANSDERMAL 21 MG TRANSDERM (09:36)
[2024-11-17] MEDS: ZOSYN 50 IV ×3 (09:36→22:42)
--- NOTE | 2024-11-17 11:32 | PTCARENOTE ---
Pt was rec'd in report from night RN, AOx3 pleasant, pain controlled at this time. Pt NPO with IVF infusing, Pozo catheter, NGT via right nare to suction. Midline abd wound assessed, LLQ colostomy with budded stoma, right abdominal PEG drain with
serosang output. Plan of care and orders reviewed, pt with call thomason in hand. Safe environment maintained.
--- NOTE | 2024-11-17 11:36 | CM ---
CM met with pt bedside
He resides with his spouse in a 2SH with 1 MAMIE
Full flight to 2nd floor where he typically sleeps/showers
Has a fill bathroom and bedroom on 1st floor if 1st floor set up is needed on dc
Pt is independent with all his care needs, no ADs
He enjoys outdoor activities and is very active baseline
Pt has Rx plan and denies financial insecurities
PCP- Rosibel Romero
rx- [facility] (limited weekends hours)
Pt is POD31 Hartmanns procedure with new ostomy
PT/OT with VN recs
Referral to [facility] via [facility] per pt request
Pt has his MIL's old three wheeled walker which is broken
He will likely need a WW issued on dc
WOC consulted for ostomy teaching
Discharge Disposition- home with [facility] (referral pending) and new ostomy, will likely need WW issued on dc
--- NOTE | 2024-11-17 11:37 | W.PN.CRS1 ---
Today's Communication / Plan
-
maintain ngt
lanza out tomorrow
lovenox
wound ostomy teaching
await bowel function
continue iv abx
Assessment/Plan
-
POD#1 Exploratory laparotomy, sigmoid resection and end colostomy (Tasha procedure)
Tmax 101.0 (prior to OR), now afebrile
Vitals otherwise normal
WBC 12.3 (21.1)
-NGT to remain in place until bowel function
-Wound RN for ostomy teaching
-OOB as tolerated. PT/OT consulted.
-Start lovenox for DVT prophylaxis. TEDS/SCDS in place.
-Maintain nasra drain until discharge
-Keep lanza until pod#2
-Pain control: tylenol/toradol standing, dilaudid PRN
-Maintain IV antibiotics
-OR pathology pending
-LR @100ml/hr while NPO
Subjective Data
Procedure
11/16/2024- Exploratory laparotomy, sigmoid resection and end colostomy (Tasha procedure)
Subjective Data
Date of Service: November 17, 2024
Patient states his pain has improved. Denies nausea or vomiting. He has no complaints and feels better since surgery.
Objective Data
-
Vital Signs
Temp Pulse Resp BP Pulse Ox
97.9 F 98 23 141/88 91
11/17/24 11:13 11/17/24 11:00 11/17/24 10:52 11/17/24 11:00 11/17/24 11:00
Intake & Output
11/16/24 11/17/24 11/18/24
06:59 06:59 06:59
Intake Total 1700 / 1700 50 / 50
Output Total 550 / 550 310 / 310
Balance 1150 / 1150 -260 / -260
Intake:
IV fluids (Total) 1700 / 1700 50 / 50
Lr 1,000 ml @ 100 mls/hr IV . 400 / 400
Q10H ALDAIR Rx#:[id number]
Normosol 1300 / 1300
zosyn 50 / 50
Amount instilled into GI Tube ( 0 / 0
Total)
[place] Sump 0 / 0
Output:
Drain Output (Total) 125 / 125 130 / 130
Right Lower Abdomen Sreekanth- 125 / 125 130 / 130
Mason
Gastrointestinal tube output ( 0 / 0 30 / 30
Total)
[place] Sump 0 / 0 30 / 30
Urine, Lanza 425 / 425 150 / 150
Lab Results
11/17/24 05:06
11/17/24 05:06
Physical Exam
-
General: No Acute Distress and AOx3
Abdomen: Soft, Non Distended, Tender (mild around incisions) and Other (colostomy warm and pink, no output yet)
Skin: Warm and Dry
Wound: Dressing in Place
--- NOTE | 2024-11-17 12:42 | WOUNDNOTE ---
WO RN note: Patient sitting in recliner chair. Stoma pink and almost flush to skin. Appliance intact. Patient instructed how to open and close pouch, cut out wafer and snap on pouch. Ostomy supplies (Ana Maria wafer # [id number], Sol seals and
Ana Maria pouch # [id number]) and colostomy teaching folder given. Patient signed [employer] secure starter kit fax authorization form. Will plan ostomy appliance change teaching session later this week. Patient stated his goes to dialysis and we do
not need to include her in ostomy teaching.
[2024-11-17] MEDS: LOVENOX 40 MG SC (17:18)
[2024-11-17] MEDS: DILAUDID 1 MG IV (21:02)
[2024-11-17] MEDS: REMOVE NICOTINE PATCH 1 PATCH REMOVE (22:42)
[2024-11-17] MEDS: VENTOLIN NEBULES 2.5 MG INH (23:21)
--- NOTE | 2024-11-17 23:45 | PTCARENOTE ---
Pt violently coughing trying to bring up mucus. Assisted to sitting upright in bed, pt expectorated large amount light wallace sputum NGT noted to be dislodged at 30 cm, readvanced NGT to 60 cm and resecured w/statlock. Verified placement via
auscultation, secured tube to pt's gown. Flushed per order. HVAC REFRIGERATION TECHNICIAN covering made aware of occ audible wheeze and R posterior wheeze, scattered rhonci. Electronic order for neb treatment, RT contacted to administer. Pt verbalizes relief of
respiratory symptoms post treatment. PEG drain w/sanguinous drainage. Call katelin w/in reach.
[2024-11-18] VITALS (7 sets, daily range): BP systolic 139–156; BP diastolic 82–90; PULSE 81; O2SAT 94
[2024-11-18] MEDS: DILAUDID 2 MG IV ×5 (01:05→23:34)
[2024-11-18] MEDS: ZOSYN 50 IV ×4 (03:46→22:28)
[2024-11-18] MEDS: LR 1000 IV ×3 (03:46→23:34)
--- NOTE | 2024-11-18 04:25 | PTCARENOTE ---
Pt passing gas via colostomy, air noted to be in bag. Showed how to release. Reports pain as tolerable at present.
[2024-11-18] MEDS: TORADOL 15 MG IV (04:37)
[2024-11-18 06:29] LABS: Hematocrit 34.1 % (39.0-52.0); Hemoglobin 11.6 g/dL (13.0-18.0); Mean Corp Hgb Conc. 34.0 g/dL (33.0-37.0); Mean Corpuscular Volume 90.0 fL (80.0-94.0); Nucleated Red Blood Cells % 0 % (-); Platelet Count 201 10^3/uL (130-400); Red Cell Dist. Width 14.8 % (11.5-14.5)
[2024-11-18 06:54] LABS: ALT (SGPT) 15 U/L (0-50); AST (SGOT) 22 U/L (17-59); Albumin 3.0 g/dl (3.5-5.0); Alkaline Phosphatase 41 U/L (38-126); Blood Urea Nitrogen 45 mg/dl (9-20); Calcium 8.2 mg/dl (8.4-10.2); Carbon Dioxide 27 mmol/L (22-30); Chloride 103 mmol/L (98-107); Estimated Creatinine Clearance 56 ml/min; Glucose 115 mg/dl (70-99); Magnesium 1.8 mg/dl (1.6-2.3); Potassium 4.2 mmol/L (3.5-5.1); Sodium 136 mmol/L (135-145); Total Protein 5.3 g/dl (6.3-8.2); eGFR 51.03
[2024-11-18] MEDS: PROTONIX IV 40 MG IV (07:38)
[2024-11-18] MEDS: NICODERM TRANSDERMAL 21 MG TRANSDERM (07:39)
--- NOTE | 2024-11-18 07:46 | W.PN.HOSP.TC ---
Today's Communication/Plan
-
pain control
IVF support
NPO
abx
trial of void
Toradol discontinued, increased IVF rate, monitor renal function w daily labs
Assessment / Plan
Assessment / Plan
Physical Exam
General: no acute distress, appears relatively comfortable at this time, sitting up in bed
HEENT: NormoCephalic, Anicteric, Moist mucous membranes, NGT in place
Respiratory: Clear; No Wheezes, Rales or Rhonchi
Cardiac: S1/S2 and Regular Rhythm; No Murmur, Rub, Gallop or Peripheral Edema
GI: Soft, absent bowel sounds, dressings clean dry intact, colostomy present no stool noted
Musculoskeletal: No Clubbing, No Cyanosis and No Edema
Skin: Warm and Dry; No Rash
Neuro: AO x 3 conversant coherent
Psych: Calm
64M Tobacco Diverticulitis Chronic back pain narcotics dependence HTN HLD GERD here for severe sepsis 2/2 diverticulitis perforation s/p Exploratory laparotomy, sigmoid resection and end colostomy (Tasha procedure),
#Severe sepsis diverticulitis perforation s/p Exploratory Lap, sigmoid resection, End Colostomy
IMU admit, hemodynamically stable post-op, wbc trending down, Downgraded to Tele 11/17/24
CRS eval appreciated cont strict NPO, maintain NGT
IVF support while NPO
cont empiric zosyn
Bacteremia E. coli follow sensitivities repeat Blood cultures
pain control
#HTN
holding home Valsartan HCTZ while strict NPO
Labetalol prn
#Chronic Back pain w/ chronic opiate use possible dependence
on prn Oxycodone home, holding d/t strict NPO
prn Dilaudid
#Tobacco use
smoking cessation counseled
Nicotine Supplementation
#Mild Cr elevation possible BRANDON
toradol discontinued
IVF rate increased to 120 cc/h
DVT ppx Lovenox
Full Code
Discussed with patient and patient's Ria
I spent a total of 48 minutes with the patient or on the floor. More than 50% of this time involved counseling and coordination of care.
Anticipated Discharge: > 48 hours
Subjective/Interval History
-
Date of Service: November 18, 2024
No acute distress, sitting up comfortably in bed, notes flatus. Appears overall significantly improved from yesterday, pain control improved.
Objective Data
-
Labs:
Laboratory Results
11/18/24
05:29
WBC 15.8 H
Hgb 11.6 L
Hct 34.1 L
Plt Count 201
Sodium 136
Potassium 4.2
Chloride 103
Carbon Dioxide 27
BUN 45 H
Creatinine 1.5 H
Glucose 115 H
Calcium 8.2 L
Total Bilirubin 1.2
AST 22
ALT 15
Alkaline Phosphatase 41
Vital Signs:
Vital Signs
Temp Pulse Resp BP Pulse Ox
98.4 F 77 18 142/89 95
11/18/24 07:36 11/18/24 07:36 11/18/24 07:36 11/18/24 07:36 11/18/24 07:36
I&O
11/17/24 11/18/24 11/19/24
06:59 06:59 06:59
Intake Total 1700 / 1700 2550 / 2550
Output Total 550 / 550 1945 / 1945
Balance 1150 / 1150 605 / 605
--- NOTE | 2024-11-18 09:15 | W.PN.CRS1 ---
Today's Communication / Plan
-
keep ngt
continue iv abx
oob
d/c toradol
monitor creatinine
Assessment/Plan
-
POD# 2 exploratory laparotomy, sigmoid resection and end colostomy (Tasha procedure)
Afebrile, vitals normal
WBC 15.8 (12.3, 21.1), hemoglobin 11.6 (14.2, 14.9)
Creatinine 1.5 (1.1, 0.9)
NGT output: 700ml/24 hours
Sahil drain: 330ml
-NGT to remain in place until bowel function and output slows down
-Wound RN for ostomy teaching
-OOB as tolerated. PT/OT consulted.
-Lovenox for DVT prophylaxis. TEDS/SCDS in place.
-Maintain sahil drain until discharge
-Pozo removed, await void
-Monitor hgb, wbc, and creatinine
-Pain control: Tylenol standing, Dilaudid PRN, Will hold Toradol given rise in creatinine.
-Maintain IV antibiotics
-OR pathology pending
-LR @100ml/hr while NPO
Subjective Data
Procedure
11/16/2024- Exploratory laparotomy, sigmoid resection and end colostomy (Tasha procedure)
Subjective Data
Date of Service: November 18, 2024
Patient states he was 'okay'. He has no nausea or vomiting. He has flatus in his bag now. He has no new complaints today.
Objective Data
-
Vital Signs
Temp Pulse Resp BP Pulse Ox
98.4 F 77 18 142/89 95
11/18/24 07:36 11/18/24 07:36 11/18/24 07:36 11/18/24 07:36 11/18/24 07:36
Intake & Output
11/17/24 11/18/2411/19/25
06:59 06:59 06:59
Intake Total 1700 / 1700 2550 / 2550
Output Total 550 / 550 1945 / 1945
Balance 1150 / 1150 605 / 605
Intake:
IV fluids (Total) 1700 / 1700 2300 / 2300
Lr 1,000 ml @ 100 mls/hr IV . 400 / 400 1000 / 1000
Q10H ALDAIR Rx#:[id number]
Normosol 1300 / 1300
zosyn 100 / 100
IV piggybacks 100 / 100
Amount instilled into GI Tube ( 0 / 0 150 / 150
Total)
[place] Sump 0 / 0 150 / 150
Output:
Drain Output (Total) 125 / 125 415 / 415
Right Lower Abdomen Sreekanth- 125 / 125 415 / 415
Mason
Gastrointestinal tube output ( 0 / 0 730 / 730
Total)
[place] Sump 0 / 0 730 / 730
Urine, Pozo 425 / 425 800 / 800
Lab Results
11/18/24 05:29
11/18/24 05:29
Physical Exam
-
General: No Acute Distress and AOx3
Abdomen: Soft, Non Distended, Non Tender and Other (Midline incision in place. Ostomy is bright red with clots but warm and some flatus in bag. PEG drain bloody.)
Skin: Warm and Dry
Wound: Dressing in Place
--- NOTE | 2024-11-18 12:28 | PN.CDI ---
CDI
- -
CDI:
Physician Documentation Request
Admit Date: 11/16/24 20:02
Dear Jazzmine Rashid,
Patient underwent Exploratory laparotomy with sigmoid resection and end colostomy for perforated sigmoid diverticulitis.
OR report states 'The peritoneum was entered under direct vision, there was free fluid, It was feculent and a small mount of free air. ... There was a large amount of solid stool in the pelvis with a hole in the mid to distal sigmoid colon
anteriorly. The spillage was quickly controlled.... Most of the stool was removed next.....abdominal washout was performed in all quadrants with several L of warm saline solution.'
Please further clarify:
peritonitis was present
peritonitis was not present
Other
Use of terms such as suspected, likely, concern for, or probable (associated with a specific diagnosis that is being evaluated, monitored, or treated as if it exists) are acceptable and can be coded in the inpatient setting, when documented at the
time of discharge.
Thank you,
Garima Alves RN, BSN
CDI Specialist
tiger text
Please use your independent medical judgment in providing your response.
--- NOTE | 2024-11-18 13:24 | CM ---
Reviewed the chart notes and spoke with the patient at the bedside. Patient with NGT to low wall suction in place. CM continues to be available to patient/family and is monitoring medical plan for needs at discharge.
Plan: Discharge plans will depend on the patient's progress.
[2024-11-18] MEDS: DILAUDID 1 MG IV (16:22)
[2024-11-18] MEDS: LOVENOX 40 MG SC (17:04)
[2024-11-18] MEDS: REMOVE NICOTINE PATCH 1 PATCH REMOVE (22:29)
[2024-11-19] VITALS (7 sets, daily range): BP systolic 142–164; BP diastolic 77–94; O2SAT 95; BMI 28.0
[2024-11-19] MEDS: ZOSYN 50 IV ×2 (04:16→08:39)
[2024-11-19] MEDS: DILAUDID 2 MG IV ×2 (04:28→08:40)
[2024-11-19 07:17] LABS: Hematocrit 33.0 % (39.0-52.0); Hemoglobin 10.8 g/dL (13.0-18.0); Mean Corp Hgb Conc. 32.7 g/dL (33.0-37.0); Mean Corpuscular Volume 95.9 fL (80.0-94.0); Nucleated Red Blood Cells % 0 % (-); Platelet Count 205 10^3/uL (130-400); Red Cell Dist. Width 14.4 % (11.5-14.5)
[2024-11-19 07:37] LABS: ALT (SGPT) 14 U/L (0-50); AST (SGOT) 19 U/L (17-59); Albumin 2.9 g/dl (3.5-5.0); Alkaline Phosphatase 37 U/L (38-126); Blood Urea Nitrogen 37 mg/dl (9-20); Calcium 8.4 mg/dl (8.4-10.2); Carbon Dioxide 27 mmol/L (22-30); Chloride 103 mmol/L (98-107); Estimated Creatinine Clearance 77 ml/min; Glucose 102 mg/dl (70-99); Magnesium 2.0 mg/dl (1.6-2.3); Potassium 4.1 mmol/L (3.5-5.1); Sodium 135 mmol/L (135-145); Total Protein 5.3 g/dl (6.3-8.2); eGFR > 60.00
[2024-11-19] MEDS: LR 1000 IV ×2 (08:39→15:25)
[2024-11-19] MEDS: PROTONIX IV 40 MG IV (08:41)
[2024-11-19] MEDS: NICODERM TRANSDERMAL 21 MG TRANSDERM (08:41)
--- NOTE | 2024-11-19 08:53 | W.PN.CRS1 ---
Today's Communication / Plan
-
NG tube clamping trial
Assessment/Plan
-
POD#3 exploratory laparotomy, sigmoid resection and end colostomy (Tasha procedure)
Afebrile, vitals normal
WBC 14.0 (15.8, 12.3, 21.1), hemoglobin 10.8 (11.3, 14.2, 14.9)
Creatinine 1.1 (1.5, 1.1, 0.9)
NGT output: 550ml/24 hours
Sahil drain: 60ml
-NGT clamping trial today. If removed and patient feeling well, will advance to clears.
-Wound RN for ostomy teaching
-OOB as tolerated. PT/OT consulted.
-Lovenox for DVT prophylaxis. TEDS/SCDS in place.
-Maintain sahil drain until discharge
-Monitor hgb, wbc, and creatinine (improving)
-Pain control: Tylenol standing, Dilaudid PRN, Will continue to hold Toradol given rise in creatinine.
-Maintain IV antibiotics
-OR pathology pending, OR cultures pending
-LR @100ml/hr while NPO
Subjective Data
Procedure
11/16/2024- Exploratory laparotomy, sigmoid resection and end colostomy (Tasha procedure)
Subjective Data
Date of Service: November 19, 2024
Patient states he was in a lot of pain when he coughs but otherwise at rest he is okay. Denies nausea and vomiting. He notes that there is some flatus in his bag. He was out of bed multiple times yesterday. He has no other complaints except that
his mouth is dry.
Objective Data
-
Vital Signs
Temp Pulse Resp BP Pulse Ox
99.0 F 77 16 148/86 97
11/19/24 07:30 11/19/24 07:30 11/19/24 07:30 11/19/24 07:30 11/19/24 07:30
Intake & Output
11/18/24 11/19/24 11/20/24
06:59 06:59 06:59
Intake Total 2550 / 2550 220 / 220 1320 / 1320
Output Total 1945 / 1945 2235 / 2235 200 / 200
Balance 605 / 605 -2014 / 1120 / 1120
Intake:
IV fluids (Total) 2300 / 2300 1320 / 1320
Lr 1,000 ml @ 100 mls/hr IV . 1000 / 1000
Q10H ALDAIR Rx#:[id number]
zosyn 100 / 100
IV piggybacks 100 / 100 100 / 100
Amount instilled into GI Tube ( 150 / 150 120 / 120
Total)
[place] Sump 150 / 150 120 / 120
Output:
Drain Output (Total) 415 / 415 60 / 60
Right Lower Abdomen Sreekanth- 415 / 415 60 / 60
Mason
Gastrointestinal tube output ( 730 / 730 350 / 350 200 / 200
Total)
[place] Sump 730 / 730 350 / 350 200 / 200
Urine, Pozo 800 / 800
Urine, Voided 1825 / 1825
Other:
Number of approximated SMALL 1
amounts of urine
Lab Results
11/19/24 06:40
11/19/24 06:40
Physical Exam
-
General: No Acute Distress and AOx3
Abdomen: Soft, Non Distended, Non Tender and Other (Colostomy warm and pink with some flatus in the bag. PEG drain serosanguineous.)
Wound: Dressing in Place
--- NOTE | 2024-11-19 08:58 | W.PN.HOSP.TC ---
Today's Communication/Plan
-
Diet NGT tube as per CRS
pain control
IVF support (reduce rate if stared on diet)
zosyn narrowed to unasyn
Assessment / Plan
Assessment / Plan
Physical Exam
General: no acute distress, appears relatively comfortable at this time, sitting up in bed
HEENT: NormoCephalic, Anicteric, Moist mucous membranes, NGT in place
Respiratory: Clear; No Wheezes, Rales or Rhonchi
Cardiac: S1/S2 and Regular Rhythm; No Murmur, Rub, Gallop or Peripheral Edema
GI: Soft, absent bowel sounds, dressings clean dry intact, colostomy present no stool noted
Musculoskeletal: No Clubbing, No Cyanosis and No Edema
Skin: Warm and Dry; No Rash
Neuro: AO x 3 conversant coherent
Psych: Calm
64M Tobacco Diverticulitis Chronic back pain narcotics dependence HTN HLD GERD here for severe sepsis 2/2 diverticulitis perforation s/p Exploratory laparotomy, sigmoid resection and end colostomy (Tasha procedure),
#Severe sepsis diverticulitis perforation s/p Exploratory Lap, sigmoid resection, End Colostomy
IMU admit, hemodynamically stable post-op, wbc trending down, Downgraded to Tele 11/17/24
CRS eval appreciated NGT clamping possible advancement diet
Bacteremia E. coli sensitivities appreciated repeat, OR wound/abscess cx polymicrobial Blood cultures NGTD
empiric Zosyn narrowed to Unasyn
pain control
#HTN
holding home Valsartan HCTZ while strict NPO
Labetalol prn
#Chronic Back pain w/ chronic opiate use possible dependence
on prn Oxycodone home, holding d/t strict NPO
prn Dilaudid
#Tobacco use
smoking cessation counseled
Nicotine Supplementation
#Mild Cr elevation possible BRANDON
toradol discontinued
IVF rate increased to 120 cc/h
DVT ppx Lovenox
Full Code
Discussed with patient and patient's Ria
I spent a total of 40 minutes with the patient or on the floor. More than 50% of this time involved counseling and coordination of care.
Anticipated Discharge: 24 - 48 hours
Subjective/Interval History
-
Date of Service: November 19, 2024
overall reports feeling well. Endorses flatus. Tolering NGT clamp.
Objective Data
-
Labs:
Laboratory Results
11/19/24
06:40
WBC 14.0 H
Hgb 10.8 L
Hct 33.0 L
Plt Count 205
Sodium 135
Potassium 4.1
Chloride 103
Carbon Dioxide 27
BUN 37 H
Creatinine 1.1
Glucose 102 H
Calcium 8.4
Total Bilirubin 1.4 H
AST 19
ALT 14
Alkaline Phosphatase 37 L
Vital Signs:
Vital Signs
Temp Pulse Resp BP Pulse Ox
99.0 F 77 16 148/86 97
11/19/24 07:30 11/19/24 07:30 11/19/24 07:30 11/19/24 07:30 11/19/24 07:30
I&O
11/18/24 11/19/24 11/20/24
06:59 06:59 06:59
Intake Total 2550 / 2550 220 / 220 1320 / 1320
Output Total 1945 / 1945 2235 / 2235 200 / 200
Balance 605 / 605 -2014 / 1120 / 1120
[2024-11-19 10:20] LABS: Iron 34 ug/dl (49-181)
[2024-11-19 10:29] LABS: Total Iron Binding Capacity 182 ug/dl (261-462)
--- NOTE | 2024-11-19 12:11 | CM ---
Reviewed the chart notes. Patient for NGT clamp trial today. CM continues to be available to patient/family and is monitoring medical plan for needs at discharge.
Plan: Discharge to home when medically stable with Kayden MARROQUIN. Referral sent and accepted by [facility] office.
Josephandes
[2024-11-19 13:20] LABS: Ferritin 307.0 ng/ml (17.9-464.0)
[2024-11-19] MEDS: DILAUDID 1 MG IV ×3 (13:22→21:21)
[2024-11-19] MEDS: UNASYN IV ×2 (13:30→17:02)
[2024-11-19 13:34] LABS: Vitamin B12 220 pg/ml (239-931)
[2024-11-19 14:03] LABS: Folate 3.5 ng/ml (2.76-20)
[2024-11-19] MEDS: LOVENOX 40 MG SC (17:03)
[2024-11-19] MEDS: REMOVE NICOTINE PATCH 1 PATCH REMOVE (21:18)
[2024-11-20] VITALS (9 sets, daily range): BP systolic 145–171; BP diastolic 75–85; PULSE 63
[2024-11-20] MEDS: UNASYN IV ×4 (01:03→17:41)
[2024-11-20] MEDS: DILAUDID 1 MG IV ×6 (01:33→22:04)
[2024-11-20] MEDS: LR 1000 IV ×2 (05:00→17:40)
[2024-11-20 06:29] LABS: Hematocrit 32.4 % (39.0-52.0); Hemoglobin 10.7 g/dL (13.0-18.0); Mean Corp Hgb Conc. 33.0 g/dL (33.0-37.0); Mean Corpuscular Volume 95.3 fL (80.0-94.0); Nucleated Red Blood Cells % 0 % (-); Platelet Count 224 10^3/uL (130-400); Red Cell Dist. Width 13.8 % (11.5-14.5)
[2024-11-20 06:53] LABS: ALT (SGPT) 15 U/L (0-50); AST (SGOT) 18 U/L (17-59); Albumin 2.9 g/dl (3.5-5.0); Alkaline Phosphatase 47 U/L (38-126); Blood Urea Nitrogen 25 mg/dl (9-20); Calcium 8.5 mg/dl (8.4-10.2); Carbon Dioxide 29 mmol/L (22-30); Chloride 104 mmol/L (98-107); Estimated Creatinine Clearance 94 ml/min; Glucose 95 mg/dl (70-99); Magnesium 2.0 mg/dl (1.6-2.3); Potassium 4.0 mmol/L (3.5-5.1); Sodium 139 mmol/L (135-145); Total Protein 5.3 g/dl (6.3-8.2); eGFR > 60.00
--- NOTE | 2024-11-20 08:01 | W.PN.HOSP.TC ---
Today's Communication/Plan
-
cont abx
blood pressure control
pain control
PT/OT
Assessment / Plan
Assessment / Plan
Physical Exam
General: no acute distress, appears relatively comfortable at this time, sitting up in bed
HEENT: NormoCephalic, Anicteric, Moist mucous membranes
Respiratory: Clear; No Wheezes, Rales or Rhonchi
Cardiac: S1/S2 and Regular Rhythm; No Murmur, Rub, Gallop or Peripheral Edema
GI: Soft, absent bowel sounds, dressings clean dry intact, colostomy present
Musculoskeletal: No Clubbing, No Cyanosis and No Edema
Skin: Warm and Dry; No Rash
Neuro: AO x 3 conversant coherent
Psych: Calm
64M Tobacco Diverticulitis Chronic back pain narcotics dependence HTN HLD GERD here for severe sepsis 2/2 diverticulitis perforation s/p Exploratory laparotomy, sigmoid resection and end colostomy (Tasha procedure),
#Severe sepsis diverticulitis perforation s/p Exploratory Lap, sigmoid resection, End Colostomy
IMU admit, hemodynamically stable post-op, wbc trending down, Downgraded to Tele 11/17/24
CRS eval appreciated NGT discontinued, diet advanced to full liquid
Bacteremia E. coli sensitivities appreciated repeat, OR wound/abscess cx polymicrobial Blood cultures NGTD
empiric Zosyn narrowed to Unasyn
pain control
simethicone prn gas discomfort
#HTN
home Valsartan HCTZ held while strict NPO
Valsartan resumed at reduced dose 40 mg daily w/ advancement diet
Labetalol prn
#Chronic Back pain w/ chronic opiate use possible dependence
on prn Oxycodone home, held d/t strict NPO
prn Dilaudid
#Tobacco use
smoking cessation counseled
Nicotine Supplementation
#Mild Cr elevation possible BRANDON
toradol discontinued
IVF rate briefly increased to 120 cc/h
Cr elevation since resolved, IVF rate reduced with advancement diet
DVT ppx Lovenox
Full Code
I spent a total of 40 minutes with the patient or on the floor. More than 50% of this time involved counseling and coordination of care.
Anticipated Discharge: > 48 hours
Subjective/Interval History
-
Date of Service: November 20, 2024
Seen and examined at bedside in no acute distress sitting up comfortably in bed. Tolerating liquid diet. Reporting Gas discomfort.
Objective Data
-
Labs:
Laboratory Results
11/20/24
05:44
WBC 13.0 H
Hgb 10.7 L
Hct 32.4 L
Plt Count 224
Sodium 139
Potassium 4.0
Chloride 104
Carbon Dioxide 29
BUN 25 H
Creatinine 0.9
Glucose 95
Calcium 8.5
Total Bilirubin 1.2
AST 18
ALT 15
Alkaline Phosphatase 47
Vital Signs:
Vital Signs
Temp Pulse Resp BP Pulse Ox
98.6 F 68 17 145/84 96
11/20/24 03:17 11/20/24 03:17 11/20/24 03:17 11/20/24 03:17 11/20/24 03:17
I&O
11/19/24 11/20/24 11/21/24
06:59 06:59 06:59
Intake Total 220 / 220 1999 / 1999 1250 / 1250
Output Total 2235 / 2235 2250 / 2250
Balance -2014 / -2015 -250 / -250 1250 / 1250
[2024-11-20] MEDS: NICODERM TRANSDERMAL 21 MG TRANSDERM (08:05)
[2024-11-20] MEDS: PROTONIX IV 40 MG IV (08:08)
--- NOTE | 2024-11-20 09:06 | W.PN.CRS1 ---
Today's Communication / Plan
-
fulls to low residue
wound care
OOB
IV abx
Assessment/Plan
-
POD#4 exploratory laparotomy, sigmoid resection and end colostomy (Tasha procedure)
Afebrile, vitals normal
WBC 13.0 (14.0, 15.8, 12.3, 21.1), hemoglobin 10.7 (10.8, 11.3, 14.2, 14.9)
Creatinine 0.5 (1.1, 1.5, 1.1, 0.9)
Sahil drain: 25ml
-Advance to full liquids. If tolerating, can advance to low residue later today.
-Wound RN for ostomy teaching
-OOB as tolerated. PT/OT consulted.
-Lovenox for DVT prophylaxis. TEDS/SCDS in place.
-Maintain sahil drain until discharge
-Monitor hgb, wbc, and creatinine (improving)
-Pain control: Tylenol standing, Dilaudid PRN, Will continue to hold Toradol given rise in creatinine post op.
-Patient concerned regarding narcotics. He has a contract with [facility]. I called the practice to let them know his situation.
-Maintain IV antibiotics - Unasyn
-OR pathology pending, OR cultures pending
-D/c IVFs when tolerating po intake
Subjective Data
Procedure
11/16/2024- Exploratory laparotomy, sigmoid resection and end colostomy (Tasha procedure)
Subjective Data
Date of Service: November 20, 2024
Patient states that his pain management is adequate. He denies nausea or vomiting. He is walking around the unit. He has bowel movements. He is urinating without difficulty.
Objective Data
-
Vital Signs
Temp Pulse Resp BP Pulse Ox
98.9 F 68 16 152/82 98
11/20/24 07:25 11/20/24 07:25 11/20/24 07:25 11/20/24 07:25 11/20/24 07:25
Intake & Output
11/19/24 11/20/24 11/21/24
06:59 06:59 06:59
Intake Total 220 / 220 2000 / 2000 1250 / 1250
Output Total 2235 / 2235 2250 / 2250
Balance -2015 / -2015 -250 / -250 1250 / 1250
Intake:
Oral fluids 680 / 680 240 / 240
IV fluids (Total) 1320 / 1320 770 / 770
IV piggybacks 100 / 100 240 / 240
Amount instilled into GI Tube ( 120 / 120
Total)
[place] Sump 120 / 120
Output:
Liquid stool amount 150 / 150
Colostomy 150 / 150
Drain Output (Total) 60
Right Lower Abdomen Sreekanth- 60 / 60
Mason
Gastrointestinal tube output ( 350 / 350 200 / 200
Total)
[place] Sump 350 / 350 200 / 200
Urine, Voided 1824 / 1824 1874 / 1874
Other:
Number of approximated SMALL 1
amounts of urine
Lab Results
11/20/24 05:44
11/20/24 05:44
Physical Exam
-
General: No Acute Distress and AOx3
Abdomen: Soft, Non Distended, Tender (Around incisions) and Other (Colostomy warm and pink with output)
Skin: Warm and Dry
Wound: Dressing in Place and Other (PEG serosanguineous)
--- NOTE | 2024-11-20 10:31 | WOUNDNOTE ---
WOC RN note: Patient's stoma pink and slightly budded with some brown tissue along proximal edge. Peristomal skin intact. Soft loose brown stool in pouch. Midline post op dressing with large amount of sanguinous drainage at distal half of incision.
Dressing changed as requested by BRITANY Nielsen. Dry gauze dressing applied.
Ostomy location and type: Colostomy L side.
Instructed patient ostomy pouch emptying and changing appliance using [employer] Maria wafer #[id number], Sol seal and
[place] pouch # [id number].
Ostomy supplies at bedside.
As per patient: Kayden services for ostomy teaching.
Nursing care plan updated, will follow as needed. Next appliance change due on Sunday.
--- NOTE | 2024-11-20 10:38 | WOUNDNOTE ---
WOC RN note: Patient's heels blanchable red and intact. Heels off bed with pillow. Sacral skin intact without redness. Patient turns self in bed.
--- NOTE | 2024-11-20 11:02 | WOUNDNOTE ---
WOC RN note: Ordered patient a Armstrong ostomy secure starter kit.
[2024-11-20] MEDS: DIOVAN 40 MG PO (11:21)
--- NOTE | 2024-11-20 11:48 | CM ---
Reviewed the chart notes and spoke with the patient at the bedside. If patient able to tolerate full liquids then low residue diet later today. CM continues to be available to patient/family and is monitoring medical plan for needs at discharge.
Plan: Discharge to home when medically stable with Kayden MARROQUIN. Referral sent and accepted by [facility] office.
Kayden
[2024-11-20] MEDS: TRANDATE 5 MG IV (15:41)
[2024-11-20] MEDS: DILAUDID 0.5 MG IV (15:43)
[2024-11-20] MEDS: MYLICON 80 MG PO (15:43)
[2024-11-20] MEDS: LOVENOX 40 MG SC (17:41)
[2024-11-20] MEDS: REMOVE NICOTINE PATCH 1 PATCH REMOVE (22:06)
[2024-11-21] VITALS (7 sets, daily range): BP systolic 149–164; BP diastolic 77–89; PULSE 67
[2024-11-21] MEDS: UNASYN IV ×3 (00:06→11:13)
[2024-11-21] MEDS: DILAUDID 1 MG IV ×6 (01:44→20:37)
[2024-11-21 07:46] LABS: Hematocrit 30.4 % (39.0-52.0); Hemoglobin 10.2 g/dL (13.0-18.0); Mean Corp Hgb Conc. 33.6 g/dL (33.0-37.0); Mean Corpuscular Volume 89.1 fL (80.0-94.0); Platelet Count 227 10^3/uL (130-400); Red Cell Dist. Width 13.6 % (11.5-14.5)
--- NOTE | 2024-11-21 07:57 | W.PN.HOSP.TC ---
Today's Communication/Plan
-
abx de-escalated to Augmentin
cont pain control
diet as per surgery
Physical Therapy
Wound/Ostomy care
Assessment / Plan
Assessment / Plan
Physical Exam
General: no acute distress, appears relatively comfortable at this time, sitting up in bed
HEENT: NormoCephalic, Anicteric, Moist mucous membranes
Respiratory: Clear; No Wheezes, Rales or Rhonchi
Cardiac: S1/S2 and Regular Rhythm; No Murmur, Rub, Gallop or Peripheral Edema
GI: Soft, absent bowel sounds, dressings clean dry intact, colostomy present
Musculoskeletal: No Clubbing, No Cyanosis and No Edema
Skin: Warm and Dry; No Rash
Neuro: AO x 3 conversant coherent
Psych: Calm
64M Tobacco Diverticulitis Chronic back pain narcotics dependence HTN HLD GERD here for severe sepsis 2/2 diverticulitis perforation s/p Exploratory laparotomy, sigmoid resection and end colostomy (Tasha procedure),
#Severe sepsis diverticulitis perforation s/p Exploratory Lap, sigmoid resection, End Colostomy
IMU admit, hemodynamically stable post-op, wbc trending down, Downgraded to Tele 11/17/24
CRS eval appreciated NGT discontinued, diet gradually advanced to low residue
Bacteremia E. coli sensitivities appreciated repeat Blood cx's NGTD, OR wound/abscess cx polymicrobial sensitivities appreciated Blood cultures NGTD
empiric Zosyn narrowed to Unasyn further de-escalated to Augmentin with clinical improvement
pain control
simethicone prn gas discomfort
#HTN
home Valsartan HCTZ held while strict NPO
Valsartan resumed at reduced dose 40 mg daily w/ advancement diet, titrated back to home dose 160 mg daily
Labetalol prn
#Chronic Back pain w/ chronic opiate use possible dependence
on prn Oxycodone home, held d/t strict NPO
prn Dilaudid
Standing Tylenol
#Tobacco use
smoking cessation counseled
Nicotine Supplementation
#Mild Cr elevation possible BRANDON
toradol discontinued
IVF rate briefly increased to 120 cc/h
Cr elevation since resolved
IVF completed tolerating diet
DVT ppx Lovenox
Full Code
I spent a total of 38 minutes with the patient or on the floor. More than 50% of this time involved counseling and coordination of care.
Anticipated Discharge: > 48 hours
Subjective/Interval History
-
Date of Service: November 21, 2024
No acute distress, appears comfortable at this time, tolerating low residue diet.
Objective Data
-
Labs:
Laboratory Results
11/21/24
07:26
WBC 13.7 H
Hgb 10.2 L
Hct 30.4 L
Plt Count 227
Sodium Pending
Potassium Pending
Chloride Pending
Carbon Dioxide Pending
BUN Pending
Creatinine Pending
Glucose Pending
Calcium Pending
Vital Signs:
Vital Signs
Temp Pulse Resp BP Pulse Ox
99.4 F 62 16 158/85 97
11/21/24 03:04 11/21/24 03:04 11/21/24 03:04 11/21/24 03:04 11/21/24 03:04
I&O
11/20/24 11/21/24 11/22/24
06:59 06:59 06:59
Intake Total 1999 4280 / 4280
Output Total 2249 / 2249 1959 / 1959
Balance -250 / -250 2320 / 2320
[2024-11-21 08:10] LABS: Blood Urea Nitrogen 18 mg/dl (9-20); Calcium 8.3 mg/dl (8.4-10.2); Carbon Dioxide 27 mmol/L (22-30); Chloride 104 mmol/L (98-107); Estimated Creatinine Clearance 106 ml/min; Glucose 105 mg/dl (70-99); Magnesium 1.8 mg/dl (1.6-2.3); Potassium 3.9 mmol/L (3.5-5.1); Sodium 135 mmol/L (135-145); eGFR > 60.00
--- NOTE | 2024-11-21 08:29 | W.PN.CRS1 ---
Today's Communication / Plan
-
continue antibiotics
low residue diet
oob with pt
Assessment/Plan
-
POD#5 exploratory laparotomy, sigmoid resection and end colostomy (Tasha procedure)
Afebrile, vitals normal
WBC 13.7 (13.0, 14.0, 15.8, 12.3, 21.1), hemoglobin 10.2 (10.7, 10.8, 11.3, 14.2, 14.9)
Creatinine 0.8 (0.5, 1.1, 1.5, 1.1, 0.9)
Sahil drain: 35ml
-Tolerating to low residue.
-Wound RN for ostomy teaching
-OOB as tolerated. PT/OT consulted.
-Lovenox for DVT prophylaxis. TEDS/SCDS in place.
-Maintain sahil drain until discharge
-Pain control: Tylenol standing, Dilaudid PRN, Will continue to hold Toradol given rise in creatinine post op.
-Patient concerned regarding narcotics. He has a contract with [facility]. I called the practice to let them know his situation (left a voicemail 11/20).
-Maintain IV antibiotics - Unasyn
-OR pathology pending, OR cultures pending
Subjective Data
Procedure
11/16/2024- Exploratory laparotomy, sigmoid resection and end colostomy (Tasha procedure)
Subjective Data
Date of Service: November 21, 2024
Patient states he feels sore. Otherwise he is tolerating a diet. Denies nausea or vomiting. He has no other complaints.
Objective Data
-
Vital Signs
Temp Pulse Resp BP Pulse Ox
99.4 F 62 16 158/85 97
11/21/24 03:04 11/21/24 03:04 11/21/24 03:04 11/21/24 03:04 11/21/24 03:04
Intake & Output
11/20/24 11/21/24 11/22/24
06:59 06:59 06:59
Intake Total 1999 4280 / 4280
Output Total 225 / 2250 1959 / 1959
Balance -250 / -250 2320 / 2320
Intake:
Oral fluids 680 / 680 1440 / 1440
IV fluids (Total) 1320 / 1320 2120 / 2120
IV piggybacks 720 / 720
Output:
Liquid stool amount 150 / 150 200 / 200
Colostomy 150 / 150 200 / 200
Drain Output (Total)
Right Lower Abdomen Sreekanth-
Mason
Gastrointestinal tube output ( 200 / 200
Total)
[place] Sump 200 / 200
Urine, Voided 1875 / 1875 1725 / 1725
Lab Results
11/21/24 07:26
11/21/24 07:26
Physical Exam
-
General: No Acute Distress and AOx3
Abdomen: Soft, Non Distended, Non Tender and Other (PEG drain serous)
Wound: Dressing in Place
[2024-11-21] MEDS: DIOVAN 80 MG PO (08:45)
[2024-11-21] MEDS: PROTONIX IV 40 MG IV (08:46)
[2024-11-21] MEDS: NICODERM TRANSDERMAL 21 MG TRANSDERM (08:46)
[2024-11-21] MEDS: LR 1000 IV (08:47)
[2024-11-21] MEDS: AUGMENTIN 875 MG/125 MG 1 TABLET PO ×2 (12:48→20:25)
--- NOTE | 2024-11-21 12:59 | CM ---
Reviewed the chart notes. CM continues to be available to patient/family and is monitoring medical plan for needs at discharge.
Plan: Discharge to home when medically stable with Kayden MARROQUIN. Referral sent and accepted by [facility] office.
Josephdenver
[2024-11-21] MEDS: LOVENOX 40 MG SC (17:06)
--- NOTE | 2024-11-21 18:38 | PTCARENOTE ---
Patient's colostomy draining brown liquid stool throughout shift, R PEG drain emptied for 10ml serosanguineous output. Site care provided to PEG drain and midline incision, PEG drain sutures intact, midline incision kourtney and zaina in place. Patient
OOB to chair x1 assist and RW for lunch and dinner, IVF infusing.
[2024-11-21] MEDS: REMOVE NICOTINE PATCH 1 PATCH REMOVE (22:47)
[2024-11-22] MEDS: DILAUDID 1 MG IV ×6 (00:17→23:14)
[2024-11-22 03:27] VITALS: BP 141/80
[2024-11-22] MEDS: LR 1000 IV (05:35)
[2024-11-22 07:18] LABS: Hematocrit 31.5 % (39.0-52.0); Hemoglobin 10.8 g/dL (13.0-18.0); Mean Corp Hgb Conc. 34.3 g/dL (33.0-37.0); Mean Corpuscular Volume 90.3 fL (80.0-94.0); Platelet Count 264 10^3/uL (130-400); Red Cell Dist. Width 13.3 % (11.5-14.5)
[2024-11-22 07:20] VITALS: BP 148/82
--- NOTE | 2024-11-22 07:44 | W.PN.HOSP.TC ---
Today's Communication/Plan
-
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
pain control
blood pressure control
diet as per surgery
cont abx
trend wbc, monitor temp
Assessment / Plan
Assessment / Plan
Physical Exam
General: no acute distress, appears relatively comfortable at this time, sitting up in bed
HEENT: NormoCephalic, Anicteric, Moist mucous membranes
Respiratory: Clear; No Wheezes, Rales or Rhonchi
Cardiac: S1/S2 and Regular Rhythm; No Murmur, Rub, Gallop or Peripheral Edema
GI: Soft, absent bowel sounds, dressings clean dry intact, colostomy present
Musculoskeletal: No Clubbing, No Cyanosis and No Edema
Skin: Warm and Dry; No Rash
Neuro: AO x 3 conversant coherent
Psych: Calm
64M Tobacco Diverticulitis Chronic back pain narcotics dependence HTN HLD GERD here for severe sepsis 2/2 diverticulitis perforation s/p Exploratory laparotomy, sigmoid resection and end colostomy (Tasha procedure),
#Severe sepsis diverticulitis perforation s/p Exploratory Lap, sigmoid resection, End Colostomy
IMU admit, hemodynamically stable post-op, wbc trending down, Downgraded to Tele 11/17/24
CRS eval appreciated NGT discontinued, diet gradually advanced to low residue
Bacteremia E. coli sensitivities appreciated repeat Blood cx's NGTD, OR wound/abscess cx polymicrobial sensitivities appreciated Blood cultures NGTD
empiric Zosyn narrowed to Unasyn further de-escalated to Augmentin with clinical improvement
pain control
simethicone prn gas discomfort
#HTN
home Valsartan HCTZ held while strict NPO
Valsartan resumed at reduced dose 40 mg daily w/ advancement diet, titrated back to home dose 160 mg daily
#Chronic Back pain w/ chronic opiate use possible dependence
on prn Oxycodone home, held d/t strict NPO, since resumed with advancement diet
prn Dilaudid for severe pain
Standing Tylenol
#Tobacco use
smoking cessation counseled
Nicotine Supplementation
#Mild Cr elevation possible BRANDON
Toradol discontinued
IVF rate briefly increased to 120 cc/h
Cr elevation since resolved
IVF completed tolerating diet
DVT ppx Lovenox
Full Code
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
I spent a total of 38 minutes with the patient or on the floor. More than 50% of this time involved counseling and coordination of care.
Anticipated Discharge: 24 - 48 hours
Subjective/Interval History
-
Date of Service: November 22, 2024
no acute distress, appears comfortable at this time, tolerating low residue diet.
Objective Data
-
Labs:
Laboratory Results
11/22/24
06:50
WBC 14.6 H
Hgb 10.8 L
Hct 31.5 L
Plt Count 264
Sodium Pending
Potassium Pending
Chloride Pending
Carbon Dioxide Pending
BUN Pending
Creatinine Pending
Glucose Pending
Calcium Pending
Vital Signs:
Vital Signs
Temp Pulse Resp BP Pulse Ox
98.5 F 62 18 148/82 98
11/22/24 07:20 11/22/24 07:20 11/22/24 07:20 11/22/24 07:20 11/22/24 07:20
I&O
11/21/24 11/22/24 11/23/24
06:59 06:59 06:59
Intake Total 4280 / 4280 3060 / 3060
Output Total 1959 / 1959 1590 / 1590
Balance 2320 / 2320 1470 / 1470
[2024-11-22 07:52] LABS: Blood Urea Nitrogen 15 mg/dl (9-20); Calcium 8.4 mg/dl (8.4-10.2); Carbon Dioxide 27 mmol/L (22-30); Chloride 102 mmol/L (98-107); Estimated Creatinine Clearance 106 ml/min; Glucose 99 mg/dl (70-99); Magnesium 1.8 mg/dl (1.6-2.3); Potassium 3.9 mmol/L (3.5-5.1); Sodium 133 mmol/L (135-145); eGFR > 60.00
[2024-11-22] MEDS: AUGMENTIN 875 MG/125 MG 1 TABLET PO ×2 (08:01→19:49)
[2024-11-22] MEDS: DIOVAN 160 MG PO (08:01)
[2024-11-22] MEDS: NICODERM TRANSDERMAL 21 MG TRANSDERM (08:01)
[2024-11-22] MEDS: PROTONIX IV 40 MG IV (08:01)
[2024-11-22] MEDS: MYLICON 80 MG PO ×2 (08:28→23:15)
[2024-11-22] MEDS: ROXICODONE 15 MG PO ×3 (10:21→22:21)
[2024-11-22 11:59] VITALS: BP 150/83
--- NOTE | 2024-11-22 14:33 | W.PN.CRS1 ---
Today's Communication / Plan
-
Trend WBC's
Pain management
Assessment/Plan
-
64 yo male with h/o copd and chronic narcotic use now POD#6 exploratory laparotomy, sigmoid resection and end colostomy (Tasha procedure) in management of perforated sigmoid diverticulitis
Afebrile, vitals normal
Leukocytosis persists, slight up trend today after transition to PO abx on 11/21
Renal function stable
Minimal SSF from PEG
Plan:
-Continue LRD diet
-Wound RN following for ostomy teaching
-OOB as tolerated. PT/OT following; rec home health
-Maintain nasra drain until discharge
-Pain control: Tylenol standing, resume home dose of oxycodone 15mg q6hprn (verified in the [place] PDMP), Dilaudid for breakthrough
-Trend WBC
-Lovenox for DVT prophylaxis. TEDS/SCDS in place.
Subjective Data
Procedure
11/16/2024- Exploratory laparotomy, sigmoid resection and end colostomy (Tasha procedure)
Subjective Data
Date of Service: November 22, 2024
Pt seen and examined at bedside with Dr. Maya. Denies n/v. Burping stoma d/t increasing flatus. Pain management has still been difficult.
Objective Data
-
Vital Signs
Temp Pulse Resp BP Pulse Ox
98.7 F 70 18 150/83 98
11/22/24 11:59 11/22/24 11:59 11/22/24 11:59 11/22/24 11:59 11/22/24 11:59
Intake & Output
11/21/24 11/22/24 11/23/24
06:59 06:59 06:59
Intake Total 4280 / 4280 3060 / 3060 480 / 480
Output Total 1960 / 1960 1590 / 1590 375 / 375
Balance 2320 / 2320 1470 / 1470 105 / 105
Intake:
Oral fluids 1440 / 1440 1620 / 1620 480 / 480
IV fluids (Total) 2119 / 2119 1200 / 1200
IV piggybacks 720 / 720 240 / 240
Output:
Liquid stool amount 200 / 200 100 / 100
Colostomy 200 / 200 100 / 100
Drain Output (Total)
Right Lower Abdomen Sreekanth-
Mason
Urine, Voided 1725 / 1725 1475 / 1475 375 / 375
Lab Results
11/22/24 06:50
11/22/24 06:50
Physical Exam
-
General: No Acute Distress and AOx3
Abdomen: Soft, Non Distended, Tender (expected incisional) and Other (PEG drain ssf, stoma pink/budded and viable; productive of stool/flatus)
Wound: Dressing Changed
Incision: Other (staple intact, zaina removed, no erythema)
[2024-11-22 15:40] VITALS: BP 144/71
[2024-11-22] MEDS: LOVENOX 40 MG SC (17:33)
[2024-11-22] MEDS: REMOVE NICOTINE PATCH 1 PATCH REMOVE (22:21)
[2024-11-22 22:23] VITALS: BP 157/76
[2024-11-23] MEDS: DILAUDID 1 MG IV ×6 (02:42→23:04)
--- NOTE | 2024-11-23 07:01 | W.PN.HOSP.TC ---
Today's Communication/Plan
-
Cont abx
trend wbc
wound care
blood pressure control, resume HCTZ
monitor Na
fluid restriction
Assessment / Plan
Assessment / Plan
Physical Exam
General: no acute distress, appears relatively comfortable at this time, sitting up in bed
HEENT: NormoCephalic, Anicteric, Moist mucous membranes
Respiratory: Clear; No Wheezes, Rales or Rhonchi
Cardiac: S1/S2 and Regular Rhythm; No Murmur, Rub, Gallop or Peripheral Edema
GI: Soft, absent bowel sounds, dressings clean dry intact, colostomy present
Musculoskeletal: No Clubbing, No Cyanosis and No Edema
Skin: Warm and Dry; No Rash
Neuro: AO x 3 conversant coherent
Psych: Calm
64M Tobacco Diverticulitis Chronic back pain narcotics dependence HTN HLD GERD here for severe sepsis 2/2 diverticulitis perforation s/p Exploratory laparotomy, sigmoid resection and end colostomy (Tasha procedure),
#Severe sepsis diverticulitis perforation s/p Exploratory Lap, sigmoid resection, End Colostomy
IMU admit, hemodynamically stable post-op, wbc trending down, Downgraded 11/17/24
CRS eval appreciated NGT discontinued, diet gradually advanced to low residue
Bacteremia E. coli sensitivities appreciated repeat Blood cx's NGTD, OR wound/abscess cx polymicrobial sensitivities appreciated Blood cultures NGTD
empiric Zosyn narrowed to Unasyn further de-escalated to Augmentin with clinical improvement
pain control
simethicone prn gas discomfort
#HTN
home Valsartan HCTZ held while strict NPO
Valsartan resumed at reduced dose 40 mg daily w/ advancement diet, titrated back to home dose 160 mg daily
HCTZ resumed w/ holding parameters (given mild hyponatremia would have preferred to switch to alternate antihypertensive. However patient notes that he had previous adverse rxn to an antihypertensive but does not remember which medication it was)
#Mild Hyponatremia
Fluid restriction
monitor w/ restart Hctz as above
#Chronic Back pain w/ chronic opiate use possible dependence
on prn Oxycodone home, held d/t strict NPO, since resumed with advancement diet
prn Dilaudid for severe pain
Standing Tylenol
#Tobacco use
smoking cessation counseled
Nicotine Supplementation
#Mild Cr elevation possible BRANDON
Toradol discontinued
IVF rate briefly increased to 120 cc/h
Cr elevation since resolved
IVF completed tolerating diet
DVT ppx Lovenox
Full Code
I spent a total of 38 minutes with the patient or on the floor. More than 50% of this time involved counseling and coordination of care.
Anticipated Discharge: 24 - 48 hours
Subjective/Interval History
-
Date of Service: November 23, 2024
Seen and examined at bedside in no acute distress sitting up comfortably in bed. Overall reports feeling well. Pain well controlled at this time. Tolerating diet.
Objective Data
-
Labs:
Laboratory Results
11/23/24
06:53
WBC Pending
Hgb Pending
Hct Pending
Plt Count Pending
Sodium Pending
Potassium Pending
Chloride Pending
Carbon Dioxide Pending
BUN Pending
Creatinine Pending
Glucose Pending
Calcium Pending
Vital Signs:
Vital Signs
Temp Pulse Resp BP Pulse Ox
98.1 F 65 16 157/76 99
11/22/24 22:23 11/22/24 22:23 11/22/24 22:23 11/22/24 22:23 11/22/24 22:23
I&O
11/22/24 11/23/24 11/24/24
06:59 06:59 06:59
Intake Total 3060 / 3060 2160 / 2160
Output Total 1590 / 1590 1585 / 1585
Balance 1470 / 1470 575 / 575
[2024-11-23 07:21] VITALS: BP 145/73
[2024-11-23 07:49] LABS: Blood Urea Nitrogen 13 mg/dl (9-20); Calcium 8.4 mg/dl (8.4-10.2); Carbon Dioxide 25 mmol/L (22-30); Chloride 102 mmol/L (98-107); Estimated Creatinine Clearance 106 ml/min; Glucose 107 mg/dl (70-99); Magnesium 1.8 mg/dl (1.6-2.3); Potassium 4.1 mmol/L (3.5-5.1); Sodium 132 mmol/L (135-145); eGFR > 60.00
[2024-11-23] MEDS: NICODERM TRANSDERMAL 21 MG TRANSDERM (08:44)
[2024-11-23] MEDS: PROTONIX IV 40 MG IV (08:44)
[2024-11-23] MEDS: AUGMENTIN 875 MG/125 MG 1 TABLET PO ×2 (08:44→20:26)
[2024-11-23] MEDS: DIOVAN 160 MG PO (08:44)
[2024-11-23] MEDS: ROXICODONE 15 MG PO ×2 (09:00→20:29)
[2024-11-23] MEDS: MYLICON 80 MG PO (09:01)
[2024-11-23 09:27] LABS: Hematocrit 32.8 % (39.0-52.0); Hemoglobin 10.9 g/dL (13.0-18.0); Mean Corp Hgb Conc. 33.2 g/dL (33.0-37.0); Mean Corpuscular Volume 92.9 fL (80.0-94.0); Platelet Count 325 10^3/uL (130-400); Red Cell Dist. Width 13.6 % (11.5-14.5)
--- NOTE | 2024-11-23 09:52 | W.PN.CRS1 ---
Today's Communication / Plan
-
LRD, trend labs
Assessment/Plan
-
64 yo male with h/o copd and chronic narcotic use now POD#7 exploratory laparotomy, sigmoid resection and end colostomy (Tasha procedure) in management of perforated sigmoid diverticulitis
Afebrile, vitals normal
Leukocytosis persists, stable
H/H stable
Renal function stable
Minimal SSF from PEG
Plan:
-Continue LRD diet
-Wound RN following for ostomy teaching
-OOB as tolerated. PT/OT following; rec home health
-Maintain nasra drain for now, anticipate removal prior to d/c
-Pain control: Tylenol standing, continue home dose of oxycodone 15mg q6hprn, Dilaudid for breakthrough
-Trend labs
-Lovenox for DVT prophylaxis. TEDS/SCDS in place.
Subjective Data
Procedure
11/16/2024- Exploratory laparotomy, sigmoid resection and end colostomy (Tasha procedure)
Subjective Data
Date of Service: November 23, 2024
Pt seen and examined at bedside with Dr. Maya. Denies n/v. Tolerating PO intake. Stoma functioning.
Objective Data
-
Vital Signs
Temp Pulse Resp BP Pulse Ox
98.5 F 65 16 145/73 96
11/23/24 07:21 11/23/24 08:44 11/23/24 07:21 11/23/24 08:44 11/23/24 07:21
Intake & Output
11/22/24 11/23/24 11/24/24
06:59 06:59 06:59
Intake Total 3060 / 3060 2160 / 2160
Output Total 1590 / 1590 1585 / 1585
Balance 1470 / 1470 575 / 575
Intake:
Oral fluids 1620 / 1620 2160 / 2160
IV fluids (Total) 1200 / 1200
IV piggybacks 240 / 240
Output:
Liquid stool amount 100 / 100
Colostomy 100 / 100
Drain Output (Total)
Right Lower Abdomen Sreekanth-
Mason
Urine, Voided 1475 / 1475 1575 / 1575
Lab Results
11/23/24 06:53
11/23/24 06:53
Physical Exam
-
General: No Acute Distress and AOx3
Abdomen: Soft, Non Distended, Tender (expected incisional) and Other (PEG drain ssf. left abdominal stoma pink/budded and viable; productive of stool/flatus)
Incision: No Skin Erythema and Other (kourtney intact, zaina present)
[2024-11-23 10:58] VITALS: BP 146/79
[2024-11-23] MEDS: ORETIC 12.5 MG PO (11:19)
[2024-11-23 16:15] VITALS: BP 146/81
[2024-11-23] MEDS: LOVENOX 40 MG SC (17:25)
[2024-11-23] MEDS: REMOVE NICOTINE PATCH REMOVE (21:20)
[2024-11-23 23:25] VITALS: BP 142/84
[2024-11-24] MEDS: DILAUDID 1 MG IV ×5 (04:47→23:04)
[2024-11-24 07:35] VITALS: BP 127/68
[2024-11-24 08:03] LABS: Hematocrit 32.6 % (39.0-52.0); Hemoglobin 10.8 g/dL (13.0-18.0); Mean Corp Hgb Conc. 33.1 g/dL (33.0-37.0); Mean Corpuscular Volume 93.7 fL (80.0-94.0); Platelet Count 378 10^3/uL (130-400); Red Cell Dist. Width 13.6 % (11.5-14.5)
[2024-11-24] MEDS: NICODERM TRANSDERMAL 21 MG TRANSDERM (08:06)
[2024-11-24] MEDS: AUGMENTIN 875 MG/125 MG 1 TABLET PO ×2 (08:06→20:11)
[2024-11-24] MEDS: MYLICON 80 MG PO (08:06)
[2024-11-24] MEDS: ORETIC 12.5 MG PO (08:08)
[2024-11-24] MEDS: PROTONIX IV 40 MG IV (08:08)
[2024-11-24] MEDS: DIOVAN 160 MG PO (08:08)
[2024-11-24 08:36] LABS: Blood Urea Nitrogen 13 mg/dl (9-20); Calcium 8.5 mg/dl (8.4-10.2); Carbon Dioxide 27 mmol/L (22-30); Chloride 100 mmol/L (98-107); Estimated Creatinine Clearance 94 ml/min; Glucose 115 mg/dl (70-99); Magnesium 1.9 mg/dl (1.6-2.3); Potassium 4.0 mmol/L (3.5-5.1); Sodium 133 mmol/L (135-145); eGFR > 60.00
--- NOTE | 2024-11-24 08:51 | W.PN.HOSP.TC ---
Today's Communication/Plan
-
cont abx
wound/drain care as per surgery
possible discharge tomorrow if remains stable/cont to improve
Assessment / Plan
Assessment / Plan
Physical Exam
General: no acute distress, appears relatively comfortable at this time, sitting up in bed
HEENT: NormoCephalic, Anicteric, Moist mucous membranes
Respiratory: Clear; No Wheezes, Rales or Rhonchi
Cardiac: S1/S2 and Regular Rhythm; No Murmur, Rub, Gallop or Peripheral Edema
GI: Soft, absent bowel sounds, dressings clean dry intact, colostomy present
Musculoskeletal: No Clubbing, No Cyanosis and No Edema
Skin: Warm and Dry; No Rash
Neuro: AO x 3 conversant coherent
Psych: Calm
64M Tobacco Diverticulitis Chronic back pain narcotics dependence HTN HLD GERD here for severe sepsis 2/2 diverticulitis perforation s/p Exploratory laparotomy, sigmoid resection and end colostomy (Tasha procedure),
#Severe sepsis diverticulitis perforation s/p Exploratory Lap, sigmoid resection, End Colostomy
IMU admit, hemodynamically stable post-op, wbc trending down, Downgraded 11/17/24
CRS eval appreciated NGT discontinued, diet gradually advanced to low residue
Bacteremia E. coli sensitivities appreciated repeat Blood cx's NGTD, OR wound/abscess cx polymicrobial sensitivities appreciated Blood cultures NGTD
empiric Zosyn narrowed to Unasyn further de-escalated to Augmentin with clinical improvement
pain control
simethicone prn gas discomfort
#HTN
home Valsartan HCTZ held while strict NPO
Valsartan resumed at reduced dose 40 mg daily w/ advancement diet, titrated back to home dose 160 mg daily
HCTZ resumed w/ holding parameters (given mild hyponatremia would have preferred to switch to alternate antihypertensive. However patient notes that he had previous adverse rxn to an antihypertensive but does not remember which medication it was)
#Mild Hyponatremia
Fluid restriction
monitor w/ restart Hctz as above
#Chronic Back pain w/ chronic opiate use possible dependence
on prn Oxycodone home, held d/t strict NPO, since resumed with advancement diet
prn Dilaudid for severe pain
Standing Tylenol
#Tobacco use
smoking cessation counseled
Nicotine Supplementation
#Mild Cr elevation possible BRANDON
Toradol discontinued
IVF rate briefly increased to 120 cc/h
Cr elevation since resolved
IVF completed tolerating diet
DVT ppx Lovenox
Full Code
Discussed with patient and patient's Ria
I spent a total of 38 minutes with the patient or on the floor. More than 50% of this time involved counseling and coordination of care.
Anticipated Discharge: Within 24 hours
Subjective/Interval History
-
Date of Service: November 24, 2024
No acute distress, overall reports feeling well. Denies new acute issues at this time.
Objective Data
-
Labs:
Laboratory Results
11/24/24
07:24
WBC 13.0 H
Hgb 10.8 L
Hct 32.6 L
Plt Count 378
Sodium 133 L
Potassium 4.0
Chloride 100
Carbon Dioxide 27
BUN 13
Creatinine 0.9
Glucose 115 H
Calcium 8.5
Vital Signs:
Vital Signs
Temp Pulse Resp BP Pulse Ox
98.9 F 63 16 127/68 98
11/24/24 07:35 11/24/24 08:08 11/24/24 07:35 11/24/24 08:08 11/24/24 07:35
I&O
11/23/24 11/24/24 11/25/24
06:59 06:59 06:59
Intake Total 2160 / 2160 1560 / 1560
Output Total 1585 / 1585 2325 / 2325
Balance 575 / 575 -765 / -765
--- NOTE | 2024-11-24 09:52 | CM ---
Addendum entered by Kriss Benitez, RN 11/24/24 15:46:
CM spoke with the patient at the bedside. IMM reviewed.
Original Note:
Reviewed the chart notes. Patient tolerating diet. CM continues to be available to patient/family and is monitoring medical plan for needs at discharge.
Plan: Discharge to home when medically stable with Kayden MARROQUIN.
Kayden
--- NOTE | 2024-11-24 10:22 | W.PN.CRS1 ---
Today's Communication / Plan
-
PEG removal.
Disposition per hospitalist.
Assessment/Plan
-
POD 8.
1. tolerating diet with stoma function.
2. vitals and labs ok. WBC down to 13.
3. will remove PEG.
4. disposition per hospitalist.
Subjective Data
Procedure
11/16/2024- Exploratory laparotomy, sigmoid resection and end colostomy (Tasha procedure)
Subjective Data
Date of Service: November 24, 2024
No new complaints. Mild discomfort. Tolerating diet.
Objective Data
-
Vital Signs
Temp Pulse Resp BP Pulse Ox
98.9 F 63 16 127/68 98
11/24/24 07:35 11/24/24 08:08 11/24/24 07:35 11/24/24 08:08 11/24/24 07:35
Intake & Output
11/23/24 11/24/24 11/25/24
06:59 06:59 06:59
Intake Total 2160 / 2160 1560 / 1560
Output Total 1585 / 1585 2325 / 2325
Balance 575 / 575 -765 / -765
Intake:
Oral fluids 2160 / 2160 1560 / 1560
Output:
Liquid stool amount 150 / 150
Colostomy 150 / 150
Drain Output (Total) 5 /
Right Lower Abdomen Sreekanth- 5 /
Mason
Urine, Voided 1575 / 1575 2170 / 2170
Lab Results
11/24/24 07:24
11/24/24 07:24
Physical Exam
-
General: No Acute Distress
Chest: Clear
Cardiovascular: Regular Rate & Rhythm
Abdomen: Soft, Non Distended, Tender (Minimal incisional) and Other (Stoma viable with output; PEG with serosanguineous)
Extremities: No Calf Tenderness
Wound: Other (Dressings changed. Incision looks good. Telfa zaina removed.)
[2024-11-24] MEDS: DESENEX/MITRAZOL/ZEASORB 1 APPLIC TOPICAL ×2 (10:59→20:12)
[2024-11-24] MEDS: ROXICODONE 15 MG PO (11:12)
--- NOTE | 2024-11-24 14:45 | WOUNDNOTE ---
[facility] RN note: Patient's stoma pink and slightly budded with some brown tissue along proximal edge. Peristomal skin intact. Soft loose brown stool in pouch. Sacral and heel skin intact.
Ostomy location and type: Colostomy L side.
Instructed patient ostomy pouch emptying and changing appliance using [place] wafer #[id number], Sol seal and
[place]a Maria pouch # [id number]. Patient changed pouch with verbal cues and minimal assistance.
Ostomy supplies at bedside.
As per patient: [facility]
Next ostomy appliance change due or Sunday.
[2024-11-24 15:30] VITALS: BP 122/70
[2024-11-24] MEDS: LOVENOX 40 MG SC (18:22)
[2024-11-24] MEDS: REMOVE NICOTINE PATCH REMOVE (21:39)
[2024-11-24 23:26] VITALS: BP 130/79
[2024-11-25] MEDS: DILAUDID 1 MG IV ×5 (04:14→20:27)
[2024-11-25 07:25] VITALS: BP 123/65
[2024-11-25 07:43] LABS: Hematocrit 32.7 % (39.0-52.0); Hemoglobin 10.6 g/dL (13.0-18.0); Mean Corp Hgb Conc. 32.4 g/dL (33.0-37.0); Mean Corpuscular Volume 94.0 fL (80.0-94.0); Nucleated Red Blood Cells % 0 % (-); Platelet Count 414 10^3/uL (130-400); Red Cell Dist. Width 13.8 % (11.5-14.5)
--- NOTE | 2024-11-25 08:11 | W.PN.HOSP.TC ---
Today's Communication/Plan
-
11/25 CT Abd/pelvis notes possible small loculated fluid collections within the pelvis
SITA gacria appreciated npo after midnight for possible aspiration and/or drain placement 11/26
Assessment / Plan
Assessment / Plan
Physical Exam
General: no acute distress, appears relatively comfortable at this time, sitting up in bed
HEENT: NormoCephalic, Anicteric, Moist mucous membranes
Respiratory: Clear; No Wheezes, Rales or Rhonchi
Cardiac: S1/S2 and Regular Rhythm; No Murmur, Rub, Gallop or Peripheral Edema
GI: Soft, absent bowel sounds, dressings clean dry intact, colostomy present
Musculoskeletal: No Clubbing, No Cyanosis and No Edema
Skin: Warm and Dry; No Rash
Neuro: AO x 3 conversant coherent
Psych: Calm
64M Tobacco Diverticulitis Chronic back pain narcotics dependence HTN HLD GERD here for severe sepsis 2/2 diverticulitis perforation s/p Exploratory laparotomy, sigmoid resection and end colostomy (Tasha procedure),
#Severe sepsis diverticulitis perforation s/p Exploratory Lap, sigmoid resection, End Colostomy
IMU admit, hemodynamically stable post-op, wbc trending down, Downgraded 11/17/24
CRS eval appreciated NGT discontinued, diet gradually advanced to low residue
Bacteremia E. coli sensitivities appreciated repeat Blood cx's NGTD, OR wound/abscess cx polymicrobial sensitivities appreciated Blood cultures NGTD
empiric Zosyn narrowed to Unasyn further de-escalated to Augmentin with clinical improvement
pain control
simethicone prn gas discomfort
11/25 CT Abd/pelvis notes possible small loculated fluid collections within the pelvis
SITA garcia appreciated npo after midnight for possible aspiration and/or drain placement 11/26
#HTN
home Valsartan HCTZ held while strict NPO
Valsartan resumed at reduced dose 40 mg daily w/ advancement diet, titrated back to home dose 160 mg daily
HCTZ resumed w/ holding parameters (given mild hyponatremia would have preferred to switch to alternate antihypertensive. However patient notes that he had previous adverse rxn to an antihypertensive but does not remember which medication it was)
#Mild Hyponatremia
Fluid restriction
monitor w/ restart Hctz as above
#Chronic Back pain w/ chronic opiate use possible dependence
on prn Oxycodone home, held d/t strict NPO, since resumed with advancement diet
prn Dilaudid for severe pain
Standing Tylenol
#Tobacco use
smoking cessation counseled
Nicotine Supplementation
#Mild Cr elevation possible BRANDON
Toradol discontinued
IVF rate briefly increased to 120 cc/h
Cr elevation since resolved
IVF completed tolerating diet
DVT ppx Lovenox
Full Code
Discussed with patient and patient's Ria
I spent a total of 38 minutes with the patient or on the floor. More than 50% of this time involved counseling and coordination of care.
Anticipated Discharge: 24 - 48 hours
Subjective/Interval History
-
Date of Service: November 25, 2024
No acute distress, pain controlled
Objective Data
-
Labs:
Laboratory Results
11/25/24
07:35
WBC 14.8 H
Hgb 10.6 L
Hct 32.7 L
Plt Count 414 H
Vital Signs:
Vital Signs
Temp Pulse Resp BP Pulse Ox
99.1 F 78 18 130/79 100
11/24/24 23:26 11/24/24 23:26 11/24/24 23:26 11/24/24 23:26 11/24/24 23:26
I&O
11/24/24 11/25/24 11/26/24
06:59 06:59 06:59
Intake Total 1560 / 1560 720 / 720
Output Total 2325 / 2325 850 / 850
Balance -765 / -765 -130 / -130
[2024-11-25] MEDS: DIOVAN 160 MG PO (08:12)
[2024-11-25] MEDS: ORETIC 12.5 MG PO (08:13)
[2024-11-25] MEDS: PROTONIX IV 40 MG IV (08:14)
[2024-11-25] MEDS: AUGMENTIN 875 MG/125 MG 1 TABLET PO ×2 (08:14→20:26)
[2024-11-25] MEDS: NICODERM TRANSDERMAL 21 MG TRANSDERM (08:14)
[2024-11-25] MEDS: DESENEX/MITRAZOL/ZEASORB 1 APPLIC TOPICAL ×2 (08:15→20:28)
--- NOTE | 2024-11-25 09:01 | W.PN.CRS1 ---
Addendum entered and electronically signed by Stephane Schwab MD 11/25/24 14:11:
Personally reviewed and interpreted CT scan; there appears to be small loculated fluid collections within the pelvis with questionable rim enhancement; discussed with IR, who said that they should be able to aspirate, but unclear if they will be
able to place a drain; discussed with patient, who is agreeable to the procedure; hold off on restarting diet until after IR procedure; if IR procedure cannot be done until tomorrow, will restart diet and make n.p.o. at midnight
Original Note:
Today's Communication / Plan
-
as below
Assessment/Plan
-
64 yo male with h/o copd and chronic narcotic p/w perforated diverticulitis
POD#7 exploratory laparotomy, sigmoid resection and end colostomy (Tasha procedure)
AFVSS
WBC 14.8 from 13.0, Hb stable,
�Due to bump in WBC in setting of persistent low-grade leukocytosis, will obtain CTAP with p.o. and IV contrast
- If CT negative, will continue low residue diet
-Wound RN following for ostomy teaching
-OOB as tolerated. PT/OT following; rec home health
-Maintain nasra drain for now, anticipate removal prior to d/c
-Pain control: Tylenol standing, continue home dose of oxycodone 15mg q6hprn, Dilaudid for breakthrough
-Trend labs
-Lovenox for DVT prophylaxis. TEDS/SCDS in place.
Subjective Data
Procedure
11/16/2024- Exploratory laparotomy, sigmoid resection and end colostomy (Tasha procedure)
Subjective Data
Date of Service: November 25, 2024
No overnight events.
Pain controlled.
Denies nausea/vomiting. Tolerating diet.
+ Ostomy function +voiding
Objective Data
-
Vital Signs
Temp Pulse Resp BP Pulse Ox
98.4 F 62 16 123/65 98
11/25/24 07:25 11/25/24 08:12 11/25/24 07:25 11/25/24 08:12 11/25/24 07:25
Intake & Output
11/24/24 11/25/24 11/26/24
06:59 06:59 06:59
Intake Total 1560 / 1560 720 / 720
Output Total 2325 / 2325 850 / 850
Balance -765 / -765 -130 / -130
Intake:
Oral fluids 1560 / 1560 720 / 720
Output:
Liquid stool amount 150 / 150
Colostomy 150 / 150
Drain Output (Total)
Right Lower Abdomen Sreekanth- /
Mason
Urine, Voided 2170 / 2170 850 / 850
Lab Results
11/25/24 07:35
11/24/24 07:24
Physical Exam
-
General: No Acute Distress and AOx3
HEENT: Grossly Normal
Abdomen: Soft, Distended (Minimally distended, none tympanitic), Tender (Appropriately tender near midline incision), No Guarding, No Rebound and Other (Ostomy pink and productive of stool; PEG-10 mL dark liquidy black)
Skin: Warm and Dry
Wound: No Signs of Infection, No Skin Erythema and Other (Midline incision closed with intermittent kourtney, minimal serous drainage from inferior aspect)
[2024-11-25] MEDS: OMNIPAQUE 50 ML PO (09:30)
[2024-11-25 09:34] LABS: C-Reactive Protein 167.90 mg/L (0.0-10.00)
--- NOTE | 2024-11-25 10:07 | CM ---
Reviewed the chart notes. Anticipate discharge today. CM continues to be available to patient/family and is monitoring medical plan for needs at discharge.
Plan: Discharge to home when medically stable with Kayden MARROQUIN.
Kayden
[2024-11-25] MEDS: ROXICODONE 15 MG PO ×2 (10:37→22:35)
[2024-11-25 15:33] VITALS: BP 140/72
[2024-11-25] MEDS: LOVENOX 40 MG SC (16:55)
[2024-11-25] MEDS: REMOVE NICOTINE PATCH REMOVE (21:28)
[2024-11-25 23:11] VITALS: BP 127/70
[2024-11-26] MEDS: DILAUDID 1 MG IV ×6 (01:13→22:02)
--- NOTE | 2024-11-26 06:29 | DOWNTIME ---
There was a [employer] Downtime on 11/26/2024 from 0100 to 11/26/2024 at 0215. Downtime documentation of patient's care, including medication administrations, has been reconciled in the electronic record per guidelines. Refer to the
patient's paper chart under the miscellaneous tab to see printed paper medication records and downtime forms.
[2024-11-26 07:55] VITALS: BP 128/71
[2024-11-26 08:15] LABS: Hematocrit 33.8 % (39.0-52.0); Hemoglobin 10.9 g/dL (13.0-18.0); Mean Corp Hgb Conc. 32.2 g/dL (33.0-37.0); Mean Corpuscular Volume 93.9 fL (80.0-94.0); Nucleated Red Blood Cells % 0 % (-); Platelet Count 485 10^3/uL (130-400); Red Cell Dist. Width 13.6 % (11.5-14.5)
[2024-11-26 08:18] LABS: INR 1.10; PT 14.7 Sec (11.4-14.6)
[2024-11-26] MEDS: NICODERM TRANSDERMAL 21 MG TRANSDERM (08:39)
[2024-11-26] MEDS: DIOVAN 160 MG PO (08:40)
[2024-11-26] MEDS: ORETIC 12.5 MG PO (08:40)
[2024-11-26] MEDS: PROTONIX IV 40 MG IV (08:40)
--- NOTE | 2024-11-26 08:44 | W.PN.CRS1 ---
Today's Communication / Plan
-
As below
Assessment/Plan
-
64 yo male with h/o copd and chronic narcotic p/w perforated diverticulitis
POD#7 exploratory laparotomy, sigmoid resection and end colostomy (Tasha procedure)
AFVSS
WBC 12.9 from 14.8 from 13.0, Hb stable
� Persistent leukocytosis; s/p CT with small fluid collections in the pelvis
�Opened a few kourtney on the inferior aspect of the midline incision at the bedside to encourage drainage and packed
�Pending IR aspiration versus drainage of pelvic collections, will send culture to rule out infection
-Okay for low residue diet after IR drainage
-Wound RN following for ostomy teaching
-OOB as tolerated. PT/OT following; rec home health
-Maintain drain for now, anticipate removal prior to d/c
-Pain control: Tylenol standing, continue home dose of oxycodone 15mg q6hprn, Dilaudid for breakthrough
-Trend labs
-Lovenox for DVT prophylaxis. TEDS/SCDS in place.
Subjective Data
Procedure
11/16/2024- Exploratory laparotomy, sigmoid resection and end colostomy (Tasha procedure)
Subjective Data
Date of Service: November 26, 2024
No overnight events.
Pain controlled.
Denies nausea/vomiting. Tolerating diet.
+Ostomy function with stool and flatus
+voiding
Objective Data
-
Vital Signs
Temp Pulse Resp BP Pulse Ox
98.1 F 61 18 128/71 97
11/26/24 07:55 11/26/24 07:55 11/26/24 07:55 11/26/24 07:55 11/26/24 07:55
Intake & Output
11/25/24 11/26/24 11/27/24
06:59 06:59 06:59
Intake Total 720 / 720 600 / 600
Output Total 850 / 850 1575 / 1575
Balance -130 / -130 -975 / -975
Intake:
Oral fluids 720 / 720 600 / 600
Output:
Urine, Voided 850 / 850 1575 / 1575
Other:
Number of approximated MODERATE 2
amounts of urine
Lab Results
11/26/24 07:41
Physical Exam
-
General: No Acute Distress and AOx3
HEENT: Grossly Normal
Abdomen: Soft, Non Distended, Tender (Appropriately tender near midline incision, no rebound or guarding) and Other (RLQ PEG-minimal dark blackish liquid; ostomy pink and productive of stool)
Skin: Warm and Dry
Wound: No Signs of Infection, No Skin Erythema and Other (Fibrinous/serous drainage from inferior aspect of incision, 4 kourtney removed and packed with dressing)
[2024-11-26] MEDS: DESENEX/MITRAZOL/ZEASORB 1 APPLIC TOPICAL ×2 (08:45→19:53)
[2024-11-26] MEDS: AUGMENTIN 875 MG/125 MG PO (09:09)
[2024-11-26] MEDS: UNASYN IV ×3 (09:14→21:54)
[2024-11-26 09:23] LABS: Blood Urea Nitrogen 17 mg/dl (9-20); Calcium 8.7 mg/dl (8.4-10.2); Carbon Dioxide 28 mmol/L (22-30); Chloride 101 mmol/L (98-107); Estimated Creatinine Clearance 84 ml/min; Glucose 114 mg/dl (70-99); Potassium 4.4 mmol/L (3.5-5.1); Sodium 136 mmol/L (135-145); eGFR > 60.00
[2024-11-26] MEDS: ROXICODONE 15 MG PO ×2 (11:38→19:51)
--- NOTE | 2024-11-26 13:15 | W.PN.HOSP.TC ---
Today's Communication/Plan
-
IRAD for drainage
diet per CRS
Switch back to IV abx
pain control
Assessment / Plan
Assessment / Plan
Physical Exam
General: no acute distress, appears relatively comfortable at this time, sitting up in bed
HEENT: NormoCephalic, Anicteric, Moist mucous membranes
Respiratory: Clear; No Wheezes, Rales or Rhonchi
Cardiac: S1/S2 and Regular Rhythm; No Murmur, Rub, Gallop or Peripheral Edema
GI: Soft, absent bowel sounds, dressings clean dry intact, colostomy present
Musculoskeletal: No Clubbing, No Cyanosis and No Edema
Skin: Warm and Dry; No Rash
Neuro: AO x 3 conversant coherent
Psych: Calm
64M Tobacco Diverticulitis Chronic back pain narcotics dependence HTN HLD GERD here for severe sepsis 2/2 diverticulitis perforation s/p Exploratory laparotomy, sigmoid resection and end colostomy (Tasha procedure),
#Severe sepsis diverticulitis perforation s/p Exploratory Lap, sigmoid resection, End Colostomy
IMU admit, hemodynamically stable post-op, wbc trending down, Downgraded 11/17/24
CRS eval appreciated NGT discontinued, diet gradually advanced to low residue
Bacteremia E. coli sensitivities appreciated repeat Blood cx's NGTD, OR wound/abscess cx polymicrobial sensitivities appreciated Blood cultures NGTD
empiric Zosyn narrowed to Unasyn further de-escalated to Augmentin with clinical improvement-remains NPO for Irad procedure-will change back to IV Unasyn
pain control
simethicone prn gas discomfort
11/25 CT Abd/pelvis notes possible small loculated fluid collections within the pelvis
IR eval appreciated for possible aspiration and/or drain placement Wed 11/26
Diet per CRS
#HTN
home Valsartan HCTZ held while strict NPO
Valsartan resumed at reduced dose 40 mg daily w/ advancement diet, titrated back to home dose 160 mg daily
HCTZ resumed w/ holding parameters (given mild hyponatremia would have preferred to switch to alternate antihypertensive. However patient notes that he had previous adverse rxn to an antihypertensive but does not remember which medication it was)
BP controlled 128/70
#Mild Hyponatremia
Fluid restriction
monitor w/ restart Hctz as above
#Chronic Back pain w/ chronic opiate use possible dependence
on prn Oxycodone home, held d/t strict NPO, since resumed with advancement diet
prn Dilaudid for severe pain
Standing Tylenol
#Tobacco use
smoking cessation counseled
Nicotine Supplementation
#Mild Cr elevation possible BRANDON
Toradol discontinued
s/p IVF.
Cr elevation since resolved
DVT ppx Lovenox
Full Code
Anticipated Discharge: > 48 hours
Subjective/Interval History
-
Date of Service: November 26, 2024
states of abd pain as his kourtney were removed earlier today
Objective Data
-
Labs:
Laboratory Results
11/26/24
07:41
WBC 12.9 H
Hgb 10.9 L
Hct 33.8 L
Plt Count 485 H
PT 14.7 H
INR 1.10
Sodium 136
Potassium 4.4
Chloride 101
Carbon Dioxide 28
BUN 17
Creatinine 1.0
Glucose 114 H
Calcium 8.7
Vital Signs:
Vital Signs
Temp Pulse Resp BP Pulse Ox
98.1 F 61 18 128/71 97
11/26/24 07:55 11/26/24 08:40 11/26/24 07:55 11/26/24 08:40 11/26/24 07:55
I&O
11/25/24 11/26/24 11/27/24
06:59 06:59 06:59
Intake Total 720 / 720 600 / 600
Output Total 850 / 850 1575 / 1575
Balance -130 / -130 -975 / -975
Data Reviewed
-
Total Time Spent with Patient (in minutes): 55
[2024-11-26 14:51] VITALS: BP 129/70; BP_SYST 70
[2024-11-26 16:13] VITALS: BP 120/71
--- NOTE | 2024-11-26 16:32 | W.PN.UPDATE ---
Update Note
Progress Note Update
- Pt brought down to IR for pelvic abscess drain/aspiration
- [employer] CT done with patient prone. Images showed pelvic collection, measuring about 2cm in greatest diameter anterior to rectum. Given size and location, aspiration/drainage not attempted.
- Would consider re-scanning after several days of IV abx. Pt updated with findings.
[2024-11-26] MEDS: LOVENOX 40 MG SC (17:15)
[2024-11-26] MEDS: MYLICON 80 MG PO (17:15)
[2024-11-26] MEDS: REMOVE NICOTINE PATCH REMOVE (21:53)
[2024-11-26 23:27] VITALS: BP 130/72
[2024-11-27] MEDS: DILAUDID 1 MG IV ×4 (01:20→11:21)
[2024-11-27] MEDS: UNASYN IV ×2 (03:58→09:11)
[2024-11-27 07:37] VITALS: BP 111/66
[2024-11-27 08:01] LABS: ALT (SGPT) 24 U/L (0-50); AST (SGOT) 17 U/L (17-59); Albumin 3.3 g/dl (3.5-5.0); Alkaline Phosphatase 62 U/L (38-126); Blood Urea Nitrogen 18 mg/dl (9-20); Calcium 8.6 mg/dl (8.4-10.2); Carbon Dioxide 27 mmol/L (22-30); Chloride 101 mmol/L (98-107); Estimated Creatinine Clearance 84 ml/min; Glucose 110 mg/dl (70-99); Potassium 4.4 mmol/L (3.5-5.1); Sodium 135 mmol/L (135-145); Total Protein 6.1 g/dl (6.3-8.2); eGFR > 60.00
[2024-11-27] MEDS: NSS (PRESERVATIVE FREE) 10 ML IV (08:13)
[2024-11-27] MEDS: PROTONIX IV 40 MG IV (08:13)
[2024-11-27] MEDS: ORETIC PO (08:13)
[2024-11-27] MEDS: NICODERM TRANSDERMAL 21 MG TRANSDERM (08:15)
[2024-11-27] MEDS: DIOVAN PO (08:16)
[2024-11-27] MEDS: DESENEX/MITRAZOL/ZEASORB 1 APPLIC TOPICAL (09:10)
--- NOTE | 2024-11-27 09:13 | W.PN.CRS1 ---
Today's Communication / Plan
-
David drain removed
continue unasyn and finish course of abx as an outpatient
dispo planning
Assessment/Plan
-
64 yo male with h/o copd and chronic narcotic p/w perforated diverticulitis
POD#8 exploratory laparotomy, sigmoid resection and end colostomy (Tasha procedure)
AFVSS
Labs are pending
� Persistent leukocytosis; s/p CT with small fluid collections in the pelvis - IR unable to drain yesterday, continue IV antibiotics
�Wound opened yesterday, 11/26, no active pus noted, repacked
-Continue low residue diet
-Wound RN following for ostomy teaching
-OOB as tolerated. PT/OT following; rec home health
-Maintain drain for now, anticipate removal prior to d/c
-Pain control: Tylenol standing, continue home dose of oxycodone 15mg q6hprn, Dilaudid for breakthrough
-Trend labs
-Lovenox for DVT prophylaxis. TEDS/SCDS in place.
-Dispo per primary team.
-DAVID drain removed this AM
-I have called the office of Gayla Hodges NP, his auto customize painter. They are aware he is in the hospital and have noted it in his chart. They will continue to refill his narcotics after he is discharged and have asked the patient to
call if he is running low due to post op pain. I have put all of this in the patient's discharge.
-Follow up with Dr. Field in 1 week from discharge for staple removal.
Subjective Data
Procedure
11/16/2024- Exploratory laparotomy, sigmoid resection and end colostomy (Tasha procedure)
Subjective Data
Date of Service: November 27, 2024
Patient states he feels well. He denies nausea or vomiting. Tolerating a diet. Pain is controlled.
Objective Data
-
Vital Signs
Temp Pulse Resp BP Pulse Ox
98.2 F 66 18 111/66 97
11/27/24 07:37 11/27/24 08:16 11/27/24 07:37 11/27/24 08:16 11/27/24 07:37
Intake & Output
11/26/24 11/27/24 11/28/24
06:59 06:59 06:59
Intake Total 600 / 600 600 / 600 480 / 480
Output Total 1575 / 1575 1050 / 1050 200 / 200
Balance -975 / -975 -450 / -450 280 / 280
Intake:
Oral fluids 600 / 600 240 / 240 480 / 480
IV piggybacks 360 / 360
Output:
Urine, Voided 1575 / 1575 1050 / 1050 200 / 200
Other:
Number of approximated MODERATE 2
amounts of urine
Lab Results
11/27/24 07:07
Physical Exam
-
General: No Acute Distress and AOx3
Abdomen: Soft, Non Distended, Non Tender and Other (DAVID drain serosanginous)
Wound: Dressing Changed (sersanginous output, no pus, kourtney in place, wound opened at the lower portion)
[2024-11-27 09:29] LABS: Hematocrit 33.1 % (39.0-52.0); Hemoglobin 10.9 g/dL (13.0-18.0); Mean Corp Hgb Conc. 32.9 g/dL (33.0-37.0); Mean Corpuscular Volume 95.7 fL (80.0-94.0); Nucleated Red Blood Cells % 0 % (-); Platelet Count 542 10^3/uL (130-400); Red Cell Dist. Width 13.7 % (11.5-14.5)
--- NOTE | 2024-11-27 10:57 | W.PN.HOSP.TC ---
Today's Communication/Plan
-
IV unasyn for now
ID eval
monitor diet tolerance
Assessment / Plan
Assessment / Plan
Physical Exam
General: no acute distress, appears relatively comfortable at this time, sitting up in bed
HEENT: NormoCephalic, Anicteric, Moist mucous membranes
Respiratory: Clear; No Wheezes, Rales or Rhonchi
Cardiac: S1/S2 and Regular Rhythm; No Murmur, Rub, Gallop or Peripheral Edema
GI: Soft, absent bowel sounds, dressings clean dry intact, colostomy present
Musculoskeletal: No Clubbing, No Cyanosis and No Edema
Skin: Warm and Dry; No Rash
Neuro: AO x 3 conversant coherent
Psych: Calm
64M Tobacco Diverticulitis Chronic back pain narcotics dependence HTN HLD GERD here for severe sepsis 2/2 diverticulitis perforation s/p Exploratory laparotomy, sigmoid resection and end colostomy (Tasha procedure),
#Severe sepsis diverticulitis perforation s/p Exploratory Lap, sigmoid resection, End Colostomy
[facility] admit, hemodynamically stable post-op, wbc trending down, Downgraded 11/17/24
CRS eval appreciated NGT discontinued, diet gradually advanced to low residue
Bacteremia E. coli sensitivities appreciated repeat Blood cx's NGTD, OR wound/abscess cx polymicrobial sensitivities appreciated Blood cultures NGTD
IRAD unable to drain pelvis abscess-see note. Recommends IV abx and repeat CT scan later
pain control
simethicone prn gas discomfort
11/25 CT Abd/pelvis notes possible small loculated fluid collections within the pelvis
diet restarted and tolerating it. WBC downtrended
d/w with CRS-may require IV abx on discharge. Will ask ID for input.
#HTN
home Valsartan HCTZ held while strict NPO
Valsartan resumed at reduced dose 40 mg daily w/ advancement diet, titrated back to home dose 160 mg daily
HCTZ resumed w/ holding parameters (given mild hyponatremia would have preferred to switch to alternate antihypertensive. However patient notes that he had previous adverse rxn to an antihypertensive but does not remember which medication it was)
BP on soft side earlier this am and BP meds held per parameters
#Mild Hyponatremia
Fluid restriction
monitor w/ restart Hctz as above
Na stable
#Chronic Back pain w/ chronic opiate use possible dependence
on prn Oxycodone home, held d/t strict NPO, since resumed with advancement diet
prn Dilaudid for severe pain
Standing Tylenol
pt to follow with outpatient pain managmenet.
#Tobacco use
smoking cessation counseled
Nicotine Supplementation
#Mild Cr elevation possible BRANDON
Toradol discontinued
s/p IVF.
Cr elevation since resolved
DVT ppx Lovenox
Full Code
Anticipated Discharge: 24 - 48 hours
Subjective/Interval History
-
Date of Service: November 27, 2024
states feeling better as PEG drain removed
Objective Data
-
Labs:
Laboratory Results
11/27/24
07:07
WBC 12.5 H
Hgb 10.9 L
Hct 33.1 L
Plt Count 542 H
Sodium 135
Potassium 4.4
Chloride 101
Carbon Dioxide 27
BUN 18
Creatinine 1.0
Glucose 110 H
Calcium 8.6
Total Bilirubin 0.4
AST 17
ALT 24
Alkaline Phosphatase 62
Vital Signs:
Vital Signs
Temp Pulse Resp BP Pulse Ox
98.2 F 66 18 111/66 97
11/27/24 07:37 11/27/24 08:16 11/27/24 07:37 11/27/24 08:16 11/27/24 07:37
I&O
11/26/24 11/27/24 11/28/24
06:59 06:59 06:59
Intake Total 600 / 600 600 / 600 480 / 480
Output Total 1575 / 1575 1050 / 1050 200 / 200
Balance -975 / -975 -450 / -450 280 / 280
Data Reviewed
-
Total Time Spent with Patient (in minutes): 55
--- NOTE | 2024-11-27 11:45 | WOUNDNOTE ---
[facility] RN note: Patient's stoma pink and almost flush. Peristomal skin with minimal pink denuded skin medially. Wafer was starting to leak just under the wafer medially. Patient reinstructed appliance change with patient participating in care.
Ana Maria soft convex cut to fit wafer #[id number] with an Sol seal and Ana Maria pouch # [id number] used. Ostomy supplies in room. Will drop off [place] #[id number] wafers. Discharge instructions updated. Patient confirmed he received Ana Maria ostomy secure
starter kit. Next appliance change due Sunday. VN to follow when discharged.
--- NOTE | 2024-11-27 13:01 | CON.ID ---
Consultation
-
Date/Time Consultation Requested: 11/27/24 11:03
Date/Time Consultation Performed: 11/27/24 13:01
Requesting Provider: Dr Kelly
Performing Provider: Dr Price
Reason for Consultation: intraabdominal abscess
Chief Complaint / Past History
Chief Complaint
abdominal fluid collection
History of Present Illness
Mr Pearson is a 64 year old male with history of COPD, chronic narcotic use for back pain who presented here 11/16 for acute abdominal pain beginning the same day and progressing. The pain was initially LLQ than became diffuse with a 'twisting'
sensation. He had a normal bowel movement that morning. No history of diverticulitis or abdominal surgery. He presented to the ER where T was 101, BP was elevated, staff observed he was lying on his left side with legs drawn up, diffusely tender
and had guarding and rebound tenderness. A CT of the abdomen showed pericolonic stranding around the sigmoid colon and multiple pockets of extraluminal air anterior to the rectum and in the upper abdomen. He was taken that same day for Tasha
procedure and found to have solid stool in the pelvis, fecal fluid in the upper quadrants. Intraabdominal cultures were taken and grew E coli, Klebsiella and Enterococcus; he was started on zosyn. The ostomy began to function by post op day 3.
Post operative day 5 he was switched to augmentin. On 11/25 the WBC count was noted to trend upward from [address] a/p with po and IV contrast was ordered showing sigmoid resection, small volume fluid in the predominanty empty rectum with
some mild stranding, cannot exclude small developing collection. IR did a repeat CT scan in the prone position showing small complex fluid collection/abscess measuring 2 cm in the greatest dimension thus aspiration was not attempted. PEG had no
further drainage and was removed today. He was restarted on unasyn, ID is consulted to consider antibiotic selection.
Past History
Additional Past Medical History:
COPD
Active smoker 1 pack a day 50 years
hypertension
hyperlipidemia
chronic back pain on chronic oral opiates,
GERD
diverticulitis
hemorrhoids
Additional Past Surgical History:
C6-C7 fusion
Allergy History:
No Known Allergies Allergy (Verified 11/16/24 15:30)
Medications Reviewed: Yes
Social History
Tobacco: Smoker
Alcohol: None
Drug: None
Family History
Family History: Not Pertinent
Review of Systems
Review of Systems
Constitutional: Reports Fever and Chills
EENT: Denies Sore Throat or Runny Nose
Respiratory: Denies Cough or Trouble Breathing
Cardiac: Denies Chest Pain, Diaphoresis, Palpitations or Syncope
Abdomen/GI: Reports Abdominal Pain and Nausea; Denies Vomiting, Diarrhea, Constipated or Bloody Stools
: Denies Dysuria, Frequency, Flank Pain, Incontinence or Difficulty Voiding
Musculoskeletal: Denies Joint Pain or Edema
Skin: Denies Itching or Rash
Neurological: Denies Dizzy, Headache or Weakness
Endocrine: Reports No Symptoms
Hematologic/Lymphatic: Reports No Symptoms
Psych: Reports Calm
Vital Signs
Temp Pulse Resp BP Pulse Ox
98.2 F 66 18 111/66 97
11/27/24 07:37 11/27/24 08:16 11/27/24 07:37 11/27/24 08:16 11/27/24 08:00
Physical Exam
Physical Exam
Constitutional: No Acute Distress
Cardiovascular: Regular Rate and S1/S2; Negative Murmur or Rub
Pulmonary: Clear and Symmetric; Negative Wheezes, Rales or Rhonchi
Gastrointestinal: Soft, Non Tender, Non Distended, Normal Bowel Sounds and Other (stoma pink)
Skin: Warm and Dry; Negative Rash or Jaundice
Lab / Diagnostic Study Results
11/27/24 07:07
11/27/24 07:07
Abs Immat Gran (auto) 0.1 10^3/uL (0-0.05) H 11/27/24 07:07
Absolute Neuts (auto) 9.1 10^3/uL (1.4-6.5) H 11/27/24 07:07
Absolute Lymphs (auto) 1.9 10^3/uL (1.2-3.4) 11/27/24 07:07
Absolute Monos (auto) 1.0 10^3/uL (0.1-0.6) H 11/27/24 07:07
Absolute Basos (auto) 0.1 10^3/uL (0-0.2) 11/27/24 07:07
Immature Gran % 1.1 % (0-0.5) H 11/27/24 07:07
Neutrophils % 72.9 % (42.2-75.2) 11/27/24 07:07
Lymphocytes % 15.2 % (20.5-51.1) L 11/27/24 07:07
Monocytes % 7.6 % (1.7-9.3) 11/27/24 07:07
Eosinophils % 2.8 % (0-6) 11/27/24 07:07
Basophils % 0.4 % (0-2) 11/27/24 07:07
PT 14.7 Sec (11.4-14.6) H 11/26/24 07:41
INR 1.10 11/26/24 07:41
Lactic Acid 2.2 mmol/L (0.7-2.0) H 11/16/24 20:14
C-Reactive Protein 167.90 mg/L (0.0-10.00) H 11/25/24 07:24
Ur Squamous Epith Cells 0-2 /LPF (Few) 11/16/24 17:02
Microbiology Results
Micro:
11/16/24 19:34 Blood Culture - Final
Blood/Venous Escherichia coli
Gram Stain - Final
11/16/24 19:34 Blood Culture - Final
Blood/Venous Bacteroides fragilis
Gram Stain - Final
11/17/24 12:03 Blood Culture - Final
Blood/Venous No Growth - Final Report
11/17/24 11:21 Blood Culture - Final
Blood/Venous No Growth - Final Report
11/16/24 21:44 Wound Culture - Final
Abdomen Escherichia coli
Klebsiella oxytoca
Enterococcus faecium
Gram Stain - Final
11/16/24 21:44 Anaerobic Culture - Final
Abdomen
11/16/24 17:02 Urine Culture - Final
Urine NO GROWTH
Assessment / Plan
Possible Intraabdominal Abscess - small
S/p Tasha Procedure
Perforated diverticulitis
History of chronic narcotic use for back pain
- favor ciprofloxacin 750 mg PO BID plus metronidazole 500 mg PO BID x 2 weeks - high bioavailability oral combination; stopped unasyn
- lab released additional sensitivities - isolates sensitive
- repeat CBC, CMP, ESR, CRP and CT a/p again in two weeks just before seeing me
- follow up with me in 2 weeks on sunday
--- NOTE | 2024-11-27 14:00 | WOUNDNOTE ---
[facility] RN note: Gave patient a box of Ana Maria soft convex wafer # [id number].
--- NOTE | 2024-11-27 14:28 | CM ---
chart reviewed
spoke with Brandy at [facility]
Referral in [facility] updated
PT rec home health
PLAN: home with [facility] when stable
[facility]
[2024-11-27] MEDS: ROXICODONE 15 MG PO (14:43)
[2024-11-27 15:14] VITALS: BP 127/67
--- NOTE | 2024-11-27 15:41 | W.DCSUMMARY ---
Discharge Summary
Discharge Data
Date of Admission: 11/16/24
Date of Discharge: 11/27/24
-
Pending Results: No
Hospital Course
64-year-old male past medical history of chronic back pain, opioid dependent, primary hypertension, hyperlipidemia, GERD who is here with abdominal pain. Upon admission patient has severely elevated white count. Patient underwent CT scan of the
abdomen and pelvis with intravenous contrast reveals pericolonic stranding around the sigmoid colon with multiple small pockets of extraluminal air anterior to the rectum and some scattered pockets of extraluminal air in the upper abdomen. There is
some mild free fluid mostly on the right. It was read by colorectal surgery. Patient underwent to the operating room. Exploratory laparotomy, sigmoid resection and end colostomy (Tasha procedure). Postop patient was kept n.p.o. IV fluid was
started. Patient was on IV Zosyn. Patient was also found to have bacteremia with E. coli. Surveillance cultures were negative. Pain was well-controlled. Patient BRANDON which downtrended and creatinine was stabilized to normal. NG tube was
eventually discontinued. Antibiotics were de-escalated to Unasyn. Blood pressure meds were slowly restarted. Diet was slowly restarted. Patient had elevated white count. Patient underwent repeat CT abdomen pelvis which showed small pelvic
collection. Interventional radiology was consulted however small fluid collection was not amenable to drainage. Infectious disease was consulted in regards for antibiotics management. Patient was tolerating diet without any difficulty. PEG drain
was removed. Infectious disease recommended patient to be started on ciprofloxacin and Flagyl. Antibiotic course duration was for 2 weeks. Patient will need a follow-up outpatient with primary doctor, colorectal surgery infectious disease.
Discharge Plan
-
Patient Disposition: Home with Home Care
Discharge Diagnosis/Procedures: Severe sepsis secondary to diverticulitis perforation s/p Exploratory Lap, sigmoid resection, End Colostomy
Mild Hyponatremia
Acute kidney injury
Diet: Low Residue
Activity: No strenuous activity
Additional Activity: No lifting over 10lbs (gallon of milk)
Driving Restrictions: Not until seen by your Dr
Bathing Restrictions: OK to Shower
Blood Work: CBC, CMP, ESR, CRP in two weeks via primary doctor or colorectal surgery
Others Tests: CT abdomen and pelvis with p.o. and IV contrast in 2 weeks via primary doctor or colorectal surgery
Wound Care: Daily dressing changes to midline incision, and as needed. Use 4x4 gauze and paper tape. Cover former drain incision with gauze and paper tape. Okay to leave both incisions open to air to shower. Allow water to run off incisions. Okay to
leave former drain site wound open to air once it seals over. Anh will be removed in the office at your appointment with Colorectal surgery.
Activity Restrictions/Additional Instructions:
Midline abdominal incision-daily dry gauze dressing change.
Colostomy supplies: Ana Maria wafer # [id number], Sol seal and Ana Maria pouch # [id number], change 2 times a week and as needed for leakage. If leakage becomes a problem, try adding Ana Maria ostomy belt # [id number].
Call supply [employer] (list in folder provided) for monthly Ostomy supplies after discharge (ask VN to order supplies while on service).
Follow up with surgeon.
Call [facility] RN nurse for ostomy pouching concerns or leakage problems [phone] or [phone] or [phone].
Cipro Precautions : Do not take any multivitamins, calcium, magnesium or zinc containing products within 3 hours of taking this medication - this includes multivitamins, milk/dairy, calcium fortified products and some laxatives.
Instructions: Low-fiber diet
Referrals:
Gamaliel Filed MD [Active, ColoRectal] - in one week
Referral Note: call to make appt-discuss about blood work and CT abdomen pelvis requirement
Amy Price MD [Active, Infectious Diseases] - in two weeks
Referral Note: call to make appt.
Rosibel Romero MD [Family Provider, Family Practice] - in less than 1 week
Referral Note: Follow-up with your primary doctor for blood pressure management
Additional Discharge Medication Instructions: If you are not able to have a staple removal appointment with Dr. Field next week, okay to schedule with his PA, Jazzmine Rashid PA-C. Please call office to schedule.
Tylenol as needed for mild/moderate pain. Maximum dose of Tylenol is 4,000mg in 24 hours. Your paint sprayer sandblaster, Gayla Hodges NP, has been notified. If you are running low on your home supply of oxycodone, they have asked that you call
them pasha and they will have you be seen in the office, or do a telehealth, in order to get more refilled.
Prescriptions:
New
metronidazole 500 mg Tablet
500 mg PO BID 14 Days Qty: 28 0RF
ciprofloxacin HCl 750 mg tablet
750 mg PO BID 14 Days Qty: 28 0RF
Continued
pantoprazole 40 MG tablet,delayed release (DR/EC)
40 mg PO DAILY
valsartan-hydrochlorothiazide 160-12.5 mg Tablet
1 tab PO DAILY
fexofenadine 180 mg Tablet
180 mg PO DAILY
oxycodone 15 mg Tablet
15 mg PO Q6HPRN PRN (Reason: severe pains)
Discharge Orders:
Discharge Patient (As Directed); Ordered 11/27/24
Ordered By: Fer Kelly
Discharge Date and Time
Print Language: PERSIAN
[2024-11-27] MEDS: LOVENOX SC (17:55)
== END 2024-11-27 18:30 | disposition home health service (06) | DRG 853 ==
LOC: 2 NORTH 20:02
PROVIDERS: Clinical Nurse Specialist Family Health; Emergency Medicine; Internal Medicine; Physician Assistant; Radiology Vascular & Interventional Radiology; Surgery; ADMITTING PHYSICIAN Internal Medicine; ATTENDING PHYSICIAN Hospitalist; CONSULT PHYSICIAN Surgery; EMERGENCY PHYSICIAN Emergency Medicine; FAMILY PHYSICIAN Family Medicine; OTHER PHYSICIAN Student in an Organized Health Care Education/Training Program
PROC: 3E0M05Z Introduction of Adhesion Barrier into Peritoneal Cavity, Open Approach (ICD-10-PCS; 2024-11-16)
PROC: 0D1M0Z4 Bypass Descending Colon to Cutaneous, Open Approach (ICD-10-PCS; 2024-11-16)
PROC: 0DTN0ZZ Resection of Sigmoid Colon, Open Approach (ICD-10-PCS; 2024-11-16)
DX: A41.9 Sepsis, unspecified organism (principal); K65.1 Peritoneal abscess; K65.9 Peritonitis, unspecified; E87.1 Hypo-osmolality and hyponatremia; F11.20 Opioid dependence, uncomplicated; K57.20 Diverticulitis of large intestine with perforation and abscess without bleeding; N17.9 Acute kidney failure, unspecified; R65.20 Severe sepsis without septic shock; I10 Essential (primary) hypertension; E78.00 Pure hypercholesterolemia, unspecified; F17.210 Nicotine dependence, cigarettes, uncomplicated; J44.9 Chronic obstructive pulmonary disease, unspecified; K21.9 Gastro-esophageal reflux disease without esophagitis; G89.29 Other chronic pain; M54.9 Dorsalgia, unspecified; K64.9 Unspecified hemorrhoids; B96.20 Unspecified Escherichia coli [E. coli] as the cause of diseases classified elsewhere; B95.2 Enterococcus as the cause of diseases classified elsewhere
CPT/HCPCS: 74177; 76380; 80048; 80053; 81003; 81015; 82607; 82728; 82746; 83540; 83550; 83605; 83690; 83735; 84100; 85025; 85027; 85610; 86140; 86850; 86900; 86901; 87040; 87070; 87075; 87077; 87086; 87154; 87186; 87205; 88307; 93005; 94640; 96361; 96374; 96375; 97116; 97163; 97167; 97530; 97535; 99285; 99406; Q9967

== ENCOUNTER → 2024-12-18 12:45 | Outpatient (REF) | payer MEDICARE, OTHER, SELFPAY ==
[2024-12-18 13:44] LABS: Blood Urea Nitrogen 10 mg/dl (9-20); Calcium 9.3 mg/dl (8.4-10.2); Carbon Dioxide 26 mmol/L (22-30); Chloride 101 mmol/L (98-107); Glucose 137 mg/dl (70-99); Potassium 4.1 mmol/L (3.5-5.1); Sodium 138 mmol/L (135-145); eGFR > 60.00
== END ==
LOC: REG 12:45
PROVIDERS: ATTENDING PHYSICIAN Nurse Practitioner Family; FAMILY PHYSICIAN Nurse Practitioner Acute Care
DX: E87.1 Hypo-osmolality and hyponatremia (principal)
CPT/HCPCS: 36415; 80048

== ENCOUNTER → 2024-12-22 13:05 | Outpatient (REF) | payer MEDICARE, OTHER, SELFPAY | LOC: RAD 13:05 | PROVIDERS: ATTENDING PHYSICIAN Student in an Organized Health Care Education/Training Program; FAMILY PHYSICIAN Family Medicine | DX: K65.1 Peritoneal abscess (principal) | CPT/HCPCS: 74177; Q9967 ==